=== PATIENT | female | born 1990 | race Caucasian/White ===

== ENCOUNTER 2016-05-29 21:28 | Outpatient (CLI) | payer OTHER ==
[2016-05-29 22:08] LABS: APPEARANCE,URINE CLOUDY; BILIRUBIN,URINE NEGATIVE (NEGATIVE); GLUCOSE, URINE NEGATIVE (NEGATIVE); KETONES,URINE 80 mg/dL (NEGATIVE); LEUKOCYTE ESTERASE,URINE MODERATE (NEGATIVE); NITRITE,URINE NEGATIVE (NEGATIVE); PROTEIN,URINE NEGATIVE (NEGATIVE); URINE SPECIFIC GRAVITY 1.013
[2016-05-29 22:23] LABS: URINE BARBITURATES SCREEN NEGATIVE; URINE METHADONE SCREEN NEGATIVE; URINE PHENCYCLIDINE SCREEN NEGATIVE
--- NOTE | 2016-05-30 04:46 | L&D Flow Sheet ---
LD Flowsheet Datetime Report Generated by CPN: 05/30/2016 04:45 Datetime: 05/29/2016 23:10 Additional Nursing Comments: Monitors removed, pt OOB and ambulating off of unit accompanied by spouse and child. (Rachelle Ring, RN) Datetime: 05/29/2016 23:07 Teaching Comments: Patient and patient's spouse verbalized understanding of discharge intstructions. Will return to hospital/report to provider for decreased movement, contractions that increase in duration/frequency/intensity, suspected SROM, vaginal bleeding. Patient denies any questions at this time, pain of 1 out of 5, in stable, ambulatory condition. Care relinquished at this time. (Rachelle Ring, RN) Datetime: 05/29/2016 23:06 NBP Sys/Latisha/Mean (mmHg): 106 (QS system process) : 76 (QS system process) : 88 (QS system process) Pulse: 115 (QS system process) Respirations: 18 (Rachelle Ring, RN) Temperature (F): 97.6 (Rachelle Ring, RN) Temperature (C): 36.4 (QS system process) Temperature Route: Oral (Rachelle Ring, RN) LaborFlag: Antepartum (QS system process) Datetime: 05/29/2016 22:57 Communication Communication: Call/Page Placed to Provider; Call/Page Returned by Provider (Rachelle Hawkins RN) Communication Comments: Call placed to Dr. Brown. Report to include pain of 1 out of 5, urinalysis results, relevant patient history, toco data, SVE and SVE recheck, vitals. Orders received to send patient home and have her follow up at her next scheduled visit. (Rachelle Ring, RN) Datetime: 05/29/2016 22:48 Uterine Activity Monitor Mode: External; Palpation (Rachelle Ring, RN) Frequency (min): x1 (Rachelle Ring, RN) Quality: Mild (Rachelle Ring, RN) Duration (sec): 60 (Rachelle Ring, RN) Resting Tone (Palpate): Relaxed (Rachelle Ring, RN) Assessment A Monitor Mode: External US (Rachelle Ring, RN) FHR Baseline Rate : 135 (Rachelle Ring, RN) Variability: Moderate 6-25 bpm (Rachelle Ring, RN) Accelerations: 15X15 (Rachelle Ring, RN) Decelerations: None (Rachelle Ring, RN) Pain Pain Scale: 1 (Rachelle Ring, RN) Pain Presence: Intermittent (Rachelle Ring, RN) Pain Type: Contraction (Rachelle Ring, RN) Pain Location: Abdomen (Rachelle Ring, RN) I/O Interventions: Up to BR (Rachelle Ring, RN) LaborFlag: Antepartum (QS system process) Datetime: 05/29/2016 22:47 Vaginal Exam Dilatation (cm): 1.5 (Rachelle Ring, RN) Effacement (%): 50 (Rachelle Ring, RN) Station: -2 (Rachelle Ring, RN) Exam by: B. Ring RN (Rachelle Ring, RN) Vaginal Bleeding: None (Rachelle Ring, RN) Cervix, Consistency: Soft (Rachelle Ring, RN) Cervix, Position: Posterior (Rachelle Ring, RN) Datetime: 05/29/2016 22:30 Uterine Activity Monitor Mode: External; Palpation (Rachelle Ring, RN) Frequency (min): Irregular (Rachelle Ring, RN) Quality: Mild (Rachelle Ring, RN) Duration (sec): 40-80 (Rachelle Ring, RN) Resting Tone (Palpate): Relaxed (Rachelle Ring, RN) Assessment A Monitor Mode: External US (Rachelle Ring, RN) FHR Baseline Rate : 135 (Rachelle Ring, RN) Variability: Moderate 6-25 bpm (Rachelle Ring, RN) Accelerations: 15X15 (Rachelle Ring, RN) Decelerations: None (Rachelle Ring, RN) Datetime: 05/29/2016 22:26 NBP Sys/Latisha/Mean (mmHg): 111 (QS system process) : 69 (QS system process) : 84 (QS system process) Pulse: 96 (QS system process) LaborFlag: Antepartum (QS system process) Datetime: 05/29/2016 22:18 Patient Care Comments: Pillow and blanket provided. (Rachelle Ring, RN) Datetime: 05/29/2016 22:04 I/O Interventions: Popsicle (Rachelle Ring, RN) Datetime: 05/29/2016 22:00 Uterine Activity Monitor Mode: External; Palpation (Rachelle Ring, RN) Frequency (min): 8 (Rachelle Ring, RN) Quality: Mild (Rachelle Ring, RN) Duration (sec): 40-70 (Rachelle Ring, RN) Resting Tone (Palpate): Relaxed (Rachelle Ring, RN) Assessment A Monitor Mode: External US (Rachelle Ring, RN) FHR Baseline Rate : 145 (Rachelle Ring, RN) Variability: Moderate 6-25 bpm (Rachelle Ring, RN) Accelerations: None (Rachelle Ring, RN) Decelerations: None (Rachelle Ring, RN) Datetime: 05/29/2016 21:56 NBP Sys/Latisha/Mean (mmHg): 115 (QS system process) : 62 (QS system process) : 81 (QS system process) Pulse: 111 (QS system process) Respirations: 22 (Rachelle Ring, RN) Temperature (F): 98.0 (Rachelle Ring, RN) Temperature (C): 36.7 (QS system process) Temperature Route: Oral (Rachelle Ring, RN) Pain Pain Scale: 1 (Rachelle Ring, RN) Pain Presence: Intermittent (Rachelle Ring, RN) Pain Type: Cramping; Contraction (Rachelle Ring, RN) Pain Location: Abdomen (Rachelle Ring, RN) Pain Goal: 1 (Rachelle Ring, RN) Pain Relief Measures: Comfort Measures (Rachelle Ring, RN) Pain Coping: Talking Through Contractions; Breathing Through Contractions (Rachelle Ring, RN) Membrane Status: Intact (Rachelle Ring, RN) Vaginal Bleeding: None (Rachelle Ring, RN) Maternal Assessment Level of Consciousness: Fully Conscious (Rachelle Ring, RN) DTR's/Clonus: DTRs 2+; No Clonus (Rachelle Ring, RN) Headache: Denies (Rachelle Ring, RN) Breath Sounds, Left: Clear and Equal (Rachelle Ring, RN) Breath Sounds, Right: Clear and Equal (Rachelle Ring, RN) Nausea/Vomiting: Denies (Rachelle Ring, RN) RUQ Epigastric Pain: Denies (Rachelle Ring, RN) Teaching Instructional Method: Verbal; Patient Instructed; Family/Support Person Instructed; Verbalized Understanding (Rachelle Ring, RN) Plan of Care: Plan of Care Discussed (Rachelle Ring, RN) Unit Routine: [place] to Room; Call [facility]; Bed; Visiting Policy; Handwashing; Flu/Illness Precautions; Monitoring; Safety/Fall Risk Prevention; Bathroom Privileges (Rachelle Ring, RN) LaborFlag: Antepartum (QS system process) Datetime: 05/29/2016 21:55 Patient Care Patient Position/Activity: Left Tilt (Rachelle Ring, RN) Datetime: 05/29/2016 21:49 Vaginal Exam Dilatation (cm): 1.5 (Rachelle Ring, RN) Effacement (%): 50 (Rachelle Ring, RN) Station: -2 (Rachelle Ring, RN) Exam by: B. Ring RN (Rachelle Ring, RN) Cervix, Consistency: Soft (Rachelle Ring, RN) Cervix, Position: Posterior (Rachelle Ring, RN) Datetime: 05/29/2016 21:48 I/O Interventions: Ice Chips Given; Clear Liquids Given (Rachelle Ring, RN) Datetime: 05/29/2016 21:44 Vital Signs Stage of : Antepartum (Rachelle Ring, RN)
--- NOTE | 2016-05-30 04:47 | L&D Current Admission ---
Current Admit Datetime Report Generated by CPN: 05/30/2016 04:45 ADMISSION INFORMATION Chief Complaint: Contractions (05/29/2016 21:56:Rachelle Ring, RN)
--- NOTE | 2016-05-30 04:47 | Antepartum Discharge Summary ---
Antepartum DC Datetime Report Generated by CPN: 05/30/2016 04:45 DIET/ACTIVITY/RESTRICTIONS Diet: Regular (05/29/2016 22:59:Rachelle Ring, RN) Activity: Normal Activity (05/29/2016 22:59:Rachelle Ring, RN) TEACHING/INSTRUCTIONS/REFERRALS Instructions Understood: Patient Verbalized Understanding; Support Person Verbalized Understanding (05/29/2016 22:59:Rachelle Ring, RN) Referrals: None (05/29/2016 22:59:Rachelle Ring, RN) Educational Materials- Other: - Kick Counts - Dehydration and (05/29/2016 22:59:Rachelle Hawkins RN) DISCHARGE INFORMATION Discharged AMA: No (05/29/2016 22:59:Rachelle Hawkins RN) Discharged To: Home (05/29/2016 22:59:Rachelle Hawkins RN) Discharge Provider Name: Dr. Brown (05/29/2016 22:59:Rachelle Hawkins RN) Accompanied By: Spouse, child (05/29/2016 22:59:Rachelle Hawkins RN) Discharge Method: Ambulatory (05/29/2016 22:59:Rachelle Hawkins RN) Condition: Stable (05/29/2016 22:59:Rachelle Hawkins RN) FOLLOW UP INFORMATION Follow Up With: [facility] (05/29/2016 22:59:Rachelle Hawkins RN) Follow Up On: As Scheduled (05/29/2016 22:59:Rachelle Hawkins RN) Follow Up Phone Number: [facility] - (05/29/2016 22:59:Rachelle Hawkins RN) Comments: Signs and symptoms to report to provider to include vaginal bleeding, decreased movement, contractions that increase in frequency/duration/intensity, suspected SROM. Will follow up with [facility] at next scheduled appointment. (05/29/2016 22:59:Rachelle Hawkins RN)
--- NOTE | 2016-05-30 04:47 | L&D Admission Assessment ---
LD ADM ASMT Datetime Report Generated by CPN: 05/30/2016 04:45 PATIENT ASSESSMENT Assessment Type: Triage (05/29/2016 21:56:Rachelle Ring, RN) WEIGHT Weight (lb): 178 (05/29/2016 21:55:QS system process) Weight (lb): 178 (05/29/2016 21:42:QS system process) Weight (kg): 80.9 (05/29/2016 21:55:QS system process) Weight (kg): 80.9 (05/29/2016 21:42:QS system process) BMI: 32.6 (05/29/2016 21:55:QS system process) PAIN Pain Scale: 1 (05/29/2016 22:48:Rachelle Ring, RN) Pain Scale: 1 (05/29/2016 21:56:Rachelle Ring, RN) Pain Presence: Intermittent (05/29/2016 22:48:Rachelle Ring, RN) Pain Presence: Intermittent (05/29/2016 21:56:Rachelle Ring, RN) Pain Type: Contraction (05/29/2016 22:48:Rachelle Ring, RN) Pain Type: Cramping; Contraction (05/29/2016 21:56:Rachelle Ring, RN) Pain Location: Abdomen (05/29/2016 22:48:Rachelle Ring, RN) Pain Location: Abdomen (05/29/2016 21:56:Rachelle Ring, RN) Pain Goal: 1 (05/29/2016 21:56:Rachelle Ring, RN) Pain Related to Contraction: Yes (05/29/2016 21:56:Rachelle Ring, RN) CONTRACTIONS Frequency (min): x1 (05/29/2016 22:48:Rachelle Ring, RN) Frequency (min): Irregular (05/29/2016 22:30:Rachelle Ring, RN) Frequency (min): 8 (05/29/2016 22:00:Rachelle Ring, RN) Duration (sec): 60 (05/29/2016 22:48:Rachelle Ring, RN) Duration (sec): 40-80 (05/29/2016 22:30:Rachelle Ring, RN) Duration (sec): 40-70 (05/29/2016 22:00:Rachelle Ring, RN) Quality: Mild (05/29/2016 22:48:Rachelle Ring, RN) Quality: Mild (05/29/2016 22:30:Rachelle Ring, RN) Quality: Mild (05/29/2016 22:00:Rachelle Ring, RN) Resting Tone Rosa: Relaxed (05/29/2016 22:48:Rachelle Ring, RN) Resting Tone Rosa: Relaxed (05/29/2016 22:30:Rachelle Ring, RN) Resting Tone Rosa: Relaxed (05/29/2016 22:00:Rachelle Ring, RN) VAGINAL EXAM Dilatation (cm): 1.5 (05/29/2016 22:47:Rachelle Ring, RN) Dilatation (cm): 1.5 (05/29/2016 21:49:Rachelle Ring, RN) Effacement (%): 50 (05/29/2016 22:47:Rachelle Ring, RN) Effacement (%): 50 (05/29/2016 21:49:Rachelle Ring, RN) Station: -2 (05/29/2016 22:47:Rachelle Ring, RN) Station: -2 (05/29/2016 21:49:Rachelle Ring, RN) Membranes Status: Intact (05/29/2016 21:56:Rachelle Ring, RN) NEURO Level of Consciousness: Fully Conscious (05/29/2016 21:56:Rachelle Ring, RN) DTR's/Clonus: DTRs 2+; No Clonus (05/29/2016 21:56:Rachelle Ring, RN) Headache: Denies (05/29/2016 21:56:Rachelle Ring, RN) Dizziness: No (05/29/2016 21:56:Rachelle Ring, RN) Blurred Vision: No (05/29/2016 21:56:Rachelle Ring, RN) Extremity Numbness/Tingling : None (05/29/2016 21:56:Rachelle Ring, RN) Extremity Movement: Full Range of Motion (05/29/2016 21:56:Rachelle Ring, RN) CARDIOVASCULAR Heart Rhythm: Regular (05/29/2016 21:56:Rachelle Ring, RN) Nailbeds: [place] (05/29/2016 21:56:Rachelle Hawkins RN) Capillary Refill: Less than 3 Seconds (05/29/2016 21:56:Rachelle Hawkins RN) Lower Extremities Edema: None (05/29/2016 21:56:Rachelle Hawkins RN) Upper Extremities Edema: None (05/29/2016 21:56:Rachelle Hawkins RN) Facial Edema: None (05/29/2016 21:56:Rachelle Hawkins RN) Vinay's Sign Left Leg: Negative (05/29/2016 21:56:Rachelle Hawkins RN) Vinay's Sign Right Leg: Negative (05/29/2016 21:56:Rachelle Hawkins RN) DVT RISK ASSESSMENT DVT Risk Age: Age less than 41 years (05/29/2016 21:56:Rachelle Hawkins RN) DVT Risk BMI: BMI<31 (05/29/2016 21:56:Rachelle Hawkins RN) DVT Risk Surgery: None Applicable (05/29/2016:56:Rachelle Hawkins RN) DVT Risk Other: Women Only- or (<1 month) (05/29/2016 21:56:Rachelle Hawkins RN) DVT Risk Total: 1 (05/29/2016 21:56:QS system process) DVT Risk Text: Low Risk (<10%) No specific measures, early ambulation (05/29/2016:56:QS system process) RESPIRATORY Respiratory Effort: Unlabored; Regular Rhythm; Equal Expansion (05/29/2016 21:56:Rachelle Ring, RN) Breath Sounds, Left: Clear and Equal (05/29/2016 21:56:Rachelle Ring, RN) Breath Sounds, Right: Clear and Equal (05/29/2016 21:56:Rachelle Ring, RN) Cough Productivity: None (05/29/2016 21:56:Rachelle Ring, RN) GASTROINTESTINAL Nausea/Vomiting: Denies (05/29/2016 21:56:Rachelle Ring, RN) Bowel Sounds: Normoactive; All Quadrants (05/29/2016 21:56:Rachelle Ring, RN) RUQ Epigastric Pain: Denies (05/29/2016 21:56:Rachelle Ring, RN) Bowel Patterns: Loose Stool (05/29/2016 21:56:Rachelle Ring, RN) Hemorrhoids: Present (05/29/2016 21:56:Rachelle Ring, RN) Diet Type: Regular diet (05/29/2016 21:56:Rachelle Ring, RN) Last Meal: 05/29/2016 13:00 (05/29/2016 21:56:Rachelle Ring, RN) GENITOURINARY Bladder: Nondistended (05/29/2016 21:56:Rachelle Ring, RN) Urination Burning: No (05/29/2016 21:56:Rachelle Ring, RN) CVA Tenderness: No (05/29/2016 21:56:Rachelle Ring, RN) Vaginal Bleeding: None (05/29/2016 21:56:Rachelle Ring, RN) Vaginal Discharge Amount: Moderate (05/29/2016 21:56:Rachelle Ring, RN) Vaginal Discharge Color: Per pt vaginal discharge has been "moderate amount of mucous/possible mucous plug" (05/29/2016 21:56:Rachelle Ring, RN) Vaginal Discharge Odor: Non-Odorous (05/29/2016 21:56:Rachelle Ring, RN) Vaginal Discharge Character: Thin (05/29/2016 21:56:Rachelle Ring, RN) INTEGUMENTARY Skin Color: Normal for Race (05/29/2016 21:56:Rachelle Ring, RN) Skin Temperature: Warm (05/29/2016 21:56:Rachelle Ring, RN) Skin Moisture: Dry (05/29/2016 21:56:Rachelle Ring, RN) Body Piercings/Tattoos: ears, nose (05/29/2016 21:56:Rachelle Ring, RN) SIRI SKIN ASSESSMENT Siri Scale Sensory Perception: No Impairment- Responds to verbal commands. Has no sensory deficit which would limit ability to feel or voice pain or discomfort (05/29/2016 21:56:Rachelle Hawkins RN) Siri Scale Moisture: Rarely Moist- Skin is usually dry. Linen only requires changing at routine intervals (05/29/2016 21:56:Rachelle Hawkins RN) Siri Scale Activity: Walks Frequently- Walks outside the room at least twice a day and inside room at least every 2 hours during the day. (05/29/2016 21:56:Rachelle Hawkins RN) Siri Scale Mobility: No Limitations- Makes major and frequent changes in position without assistance (05/29/2016 21:56:Rachelle Hawkins RN) Siri Scale Nutrition: Excellent- Eats most of every meal. Never refuses a meal. Usually eats a total of 4 or more servings of meat and dairy products. Occasionally eats between meals. Does not require supplementation (05/29/2016 21:56:Rachelle Hawkins RN) Siri Scale Friction and Shear: No Apparent Problem- Moves in bed and in chair independently and has sufficient muscle strength to lift up completely during move. Maintains good position in bed or chair at all times (05/29/2016 21:56:Rachelle Hawkins RN) Siri Scale Total: 23 (05/29/2016 21:56:QS system process) Siri Scale Risk: No Risk of Pressure Ulcer Noted at this Time (05/29/2016 21:56:QS system process) SUPPORT Family Support: Significant Other supportive, at bedside frequently; Child(kate) visited (05/29/2016 21:56:Rachelle Ring, RN) Emotional State: Calm/Relaxed (05/29/2016 21:56:Rachelle Ring, RN) SAFETY Call [facility] Within Reach: Yes (05/29/2016 21:56:Rachelle Ring, RN) Side Rails Up: Yes (05/29/2016 21:56:Rachelle Ring, RN) Bed Wheels Locked: Yes (05/29/2016 21:56:Rachelle Ring, RN) Arm Bands Present: Yes (05/29/2016 21:56:Rachelle Ring, RN) Isolation: [place] (05/29/2016 21:56:Rachelle Ring, RN) FALL SCREEN Fall Risk History of Falling: (0) No (05/29/2016 21:56:Rachelle Hawkins RN) Fall Risk Secondary Diagnosis: (0) No (05/29/2016 21:56:Rachelle Hawkins RN) Fall Risk Ambulatory Aid: (0) None/Bedrest/Wheelchair/Nurse Assist (05/29/2016 21:56:Rachelle Hawkins RN) Fall Risk IV Therapy: (0) No (05/29/2016 21:56:Rachelle Hawkins RN) Fall Risk Gait: (0) Normal/Bedrest/Immobile (05/29/2016 21:56:Rachelle Hawkins RN) Fall Risk Mental Status: (0) Oriented to Own Ability (05/29/2016 21:56:Rachelle Hawkins RN) Fall Risk Score: 0 (05/29/2016 21:56:QS system process) Fall Risk Score Definition: No Risk: No action required (05/29/2016:56:QS system process) RECENT TRAVEL/INFECTIOUS DISEASE Recent Exp Communicable Disease: No (05/29/2016 21:56:Rachelle Hawkins RN) Cough or Fever: No (05/29/2016 21:56:Rachelle Hawkins RN) Foreign Travel Past 10 Days: No (05/29/2016 21:56:Rachelle Hawkins RN) Open Wounds or Sores: No (05/29/2016 21:56:Rachelle Hawkins RN) Prior Antibiotic Resistance Tx: No (05/29/2016 21:56:Rachelle Hawkins RN) Cultures Obtained: Not Applicable (05/29/2016 21:56:Rachelle Hawkins RN) Isolation Initiated: No (05/29/2016 21:56:Rachelle Ring, RN) Pt/Family Education: Handwashing Hygiene (05/29/2016 21:56:Rachelle Ring, RN) BABY A FHR Baseline Rate (bpm) Baby A: 135 (05/29/2016 22:48:Rachelle Ring, RN) FHR Baseline Rate (bpm) Baby A: 135 (05/29/2016 22:30:Rachelle Ring, RN) FHR Baseline Rate (bpm) Baby A: 145 (05/29/2016 22:00:Rachelle Ring, RN) Variability Baby A: Moderate 6-25 bpm (05/29/2016 22:48:Rachelle Ring, RN) Variability Baby A: Moderate 6-25 bpm (05/29/2016 22:30:Rachelle Ring, RN) Variability Baby A: Moderate 6-25 bpm (05/29/2016 22:00:Rachelle Ring, RN) Accelerations Baby A: 15X15 (05/29/2016 22:48:Rachelle Ring, RN) Accelerations Baby A: 15X15 (05/29/2016 22:30:Rachelle Ring, RN) Accelerations Baby A: None (05/29/2016 22:00:Rachelle Ring, RN) Decelerations Baby A: None (05/29/2016 22:48:Rachelle Ring, RN) Decelerations Baby A: None (05/29/2016 22:30:Rachelle Ring, RN) Decelerations Baby A: None (05/29/2016 22:00:Rachelle Ring, RN)
--- NOTE | 2016-05-30 04:47 | L&D General Admission ---
General Admit Datetime Report Generated by CPN: 05/30/2016 04:45 INFORMATION Patient Age: 25 (05/13/2016 09:17:QS system process) EDC: 06/12/2016 00:00 (05/29/2016 21:25:Rachelle Hawkins, RN) : 4 (05/29/2016 21:25:Rachelle Ring, RN) Para: 3 (05/29/2016 22:59:Rachelle Ring RN) Para: 3 (05/29/2016 21:25:Rachelle Ring, RN) Term: 3 (05/29/2016 21:25:Rachelle Ring, RN) : 0 (05/29/2016 21:25:Rachelle Ring, RN) Spontaneous Abortions: 0 (05/29/2016 21:25:Rachelle Ring RN) Induced Abortions: 0 (05/29/2016 21:25:Rachelle Ring, RN) Livin (05/29/2016 21:25:Rachelle Ring, RN) Cesareans: 0 (05/29/2016 21:25:Rachelle Ring RN) VBACs: 0 (05/29/2016 21:25:Rachelle Ring, RN) Ectopic: 0 (05/29/2016 21:25:Rachelle Ring, RN) Multiple Births: 0 (05/29/2016 21:25:Rachelle Ring, RN) Baby, Number in Womb: 1 (05/29/2016 22:59:Rachelle Ring, RN) Baby, Number in Womb: 1 (05/29/2016 21:25:Rachelle Ring, RN) CARE Primary Crime Scene Evidence Technician: [facility] (05/29/2016 21:25:Rachelle Ring, RN) Adequate Care: Yes (05/29/2016 21:25:Rachelle Ring, RN) Height (in): 62 (05/29/2016 21:55:QS system process) Height (in): 62 (05/29/2016 21:42:QS system process) ALLERGIES Medication Allergy: No (05/29/2016 21:25:Rachelle Ring, RN) Medication Allergies: No Known Allergies (05/29/2016) (05/29/2016 21:42:QS system process) Medication Allergies: No Known Allergies (10/02/2014) (05/13/2016 09:17:QS system process) Latex Allergy: No Latex Allergies (05/29/2016 21:25:Rachelle Hawkins RN) Food Allergies: none (05/29/2016 21:25:Rachelle Ring RN) Environmental Allergies: none (05/29/2016 21:25:Rachelle Ring, RN) COMMUNICATION Primary Language: Qatari (05/29/2016 21:25:Rachelle Hawkins RN) Medical Tx Preferred Language: Qatari (05/29/2016 21:25:Rachelle Ring RN) Communication Barrier(s): None (05/29/2016 21:25:Rachelle Ring, RN) DEMOGRAPHICS Address: [facility] [place] [address] (05/13/2016 09:17:QS system process) Zipcode: [address] (05/13/2016 09:17:QS system process) Home (05/13/2016 09:17:QS system process) N: [id number] (05/13/2016 09:17:QS system process) Next of Kin Name: ANDREW REDD (05/13/2016 09:17:QS system process) Next of Kin (05/13/2016 09:17:QS system process) Next of Kin Relationship: SPO (05/13/2016 09:17:QS system process) Date of : 1990 (05/13/2016 09:17:QS system process) Marital Status: (05/13/2016 09:17:QS system process) Sex: Female (05/13/2016 09:17:QS system process) Race: (05/13/2016 09:17:QS system process) Ethnicity: Non- or (05/13/2016 09:17:QS system process) Anabaptist: Taoist (05/13/2016 09:17:QS system process) DRUG AND ALCOHOL USE Alcohol: No (05/29/2016 21:25:Rachelle Hawkins RN) Cigarettes: Never Smoker. [id number] (05/29/2016 21:25:Rachelle Hawkins RN) Marijuana: No (05/29/2016 21:25:Rachelle Hawkins RN) Cocaine: No (05/29/2016 21:25:Rachelle Hawkins RN) Other Illicit Drugs: No (05/29/2016 21:25:Rachelle Hawkins RN) VACCINE HISTORY Influenza Vaccine: No (05/29/2016 21:25:Rachelle Hawkins RN) Pneumococcal Vaccine: No (05/29/2016 21:25:Rachelle Hawkins RN) Tetanus Vaccine: Yes (05/29/2016 21:25:Rachelle Hawkins RN) Tdap Vaccine: Yes (05/29/2016 21:25:Rachelle Hawkins RN) Tdap Date: 2014 (05/29/2016 21:25:Rachelle Hawkins RN) Hepatitis B Vaccine: Yes (05/29/2016 21:25:Rachelle Hawkins RN) Preventive Medicine Specialist: Page Miller (05/29/2016 21:25:Rachelle Hawkins RN) Feeding Preference: Breast (05/29/2016 21:25:Rachelle Hawkins RN) Benefit of Breast Feed Discussed: Yes (05/29/2016 21:25:Rachelle Hawkins RN) Circumcision: No (05/29/2016 21:25:Rachelle Hawkins RN) Classes Attended: No (05/29/2016 21:25:Rachelle Hawkins RN) Tubal Ligation: Yes (05/29/2016 21:25:Rachelle Hawkins RN) Tubal Authorization Signed: No (05/29/2016 21:25:Rachelle Hawkins RN) Consent: N/A (05/29/2016 21:25:Rachelle Hawkins RN) Consent Signed: N/A (05/29/2016 21:25:Rachelle Hawkins RN) Pain Management Plans: Natural (05/29/2016 21:25:Rachelle Hawkins RN) Plans for Labor and Delivery: Other, Specify (05/29/2016 21:25:Rachelle Hawkins RN) Other Labor and Delivery Plans: Delayed cord clamping (05/29/2016 21:25:Rachelle Hawkins RN) Support Person: Andrew (05/29/2016 21:25:Rachelle Hawkins RN) Support Person Relationship: (05/29/2016 21:25:Rachelle Hawkins RN) Cultural/Spritual Practice: No (05/29/2016 21:25:Rachelle Hawkins RN) Spir/Cult Dietary Needs: No (05/29/2016 21:25:Rachelle Hawkins RN) LIVING SITUATION/DISCHARGE PLAN Living Arrangements: House (05/29/2016 21:25:Rachelle Hawkins RN) Adequate Access to:: Electric; Heat; Refrigeration; Plumbing/Running water; Phone; Transportation (05/29/2016 21:25:Rachelle Hawkins RN) WIC Program: Yes (05/29/2016 21:25:Rachelle Hawkins RN) Discharge Shot Examiner Person: Andrew (05/29/2016 21:25:Rachelle Hawkins RN) Person to Help after Discharge: Andrew (05/29/2016 21:25:Rachelle Hawkins RN) Currently Using Commun Resources: No (05/29/2016 21:25:Rachelle Hawkins RN) Outside Agency/Spar Cap Beveler: N/A (05/29/2016 21:25:Rachelle Hawkins RN) Car Seat for Discharge: Yes (05/29/2016 21:25:Rachelle Hawkins RN) Adoption Requested: No (05/29/2016 21:25:Rachelle Ring, RN) Pt Contact w/ Post : N/A (05/29/2016 21:25:Rachelle Ring, RN) LABS Blood Type: O Positive (05/29/2016 21:25:Rachelle Ring RN) Antibody Screen: Negative (05/29/2016 21:25:Rachelle Ring RN) Group Beta Strep: Negative (05/29/2016 21:25:Rachelle Ring RN) Gonorrhea: Negative (05/29/2016 21:25:Rachelel Ring, RN) Chlamydia: Negative (05/29/2016 21:25:Rachelle Ring RN) RPR/VDRL: Nonreactive (05/29/2016 21:25:Rachelle Ring RN) Hepatitis B: Negative (05/29/2016 21:25:Rachelle Ring, RN) Rubella: Immune (05/29/2016 21:25:Rachelle Ring, RN) OB/PREVIOUS HISTORY Previous Procedures: Ultrasound (05/29/2016 21:25:Rachelle Hawkins RN) Current Procedures: Ultrasound (05/29/2016 21:25:Rachelle Hawkins RN) History of Previous : No (05/29/2016 21:25:Rachelle Hawkins RN) History of Gestational Diabetes: No (05/29/2016 21:25:Rachelle Hawkins RN) History of PIH: No (05/29/2016 21:25:Rachelle Hawkins RN) History of Incompetent Cervix: No (05/29/2016 21:25:Rachelle Hawkins RN) History of Placenta Previa/Abrup: No (05/29/2016 21:25:Rachelle Hawkins RN) History of Macrosomia: No (05/29/2016 21:25:Rachelle Hawkins RN) History of IUGR: No (05/29/2016 21:25:Rachelle Hawkins RN) History of Hemorrhage: No (05/29/2016 21:25:Rachelle Hawkins RN) History of Loss/Stillborn: No (05/29/2016 21:25:Rachelle Hawkins RN) History of : No (05/29/2016 21:25:Rachelle Hawkins RN) History of D (Rh) Sensitization: No (05/29/2016 21:25:Rachelle Hawkins RN) History Recurrent Loss/Stillborn: No (05/29/2016 21:25:Rachelle Hawkins RN) History Depression/PP Depression: No (05/29/2016 21:25:Rachelle Hawkins RN) History of Uterine Anomaly/NARENDRA: No (05/29/2016 21:25:Rachelle Hawkins RN) History of Infertility: No (05/29/2016 21:25:Rachelle Hawkins RN) History of ART Treatment: No (05/29/2016 21:25:Rachelle Hawkins RN) History of NARENDRA: No (05/29/2016 21:25:Rachelle Hawkins RN) Comments Obstetrical History: G1: 06/2008 girl @ 39.5 weeks, 8# 2oz G2: 04/2010 boy (induction for no medical reason per pt) @ 39 weeks, 7# 7oz G3: 09/2014 boy @ 39.5, 7# 7 oz G4: current (05/29/2016 21:25:Rachelle Hawkins RN) MEDICAL HISTORY Med Hx Diabetes: No (05/29/2016 21:25:Rachelle Hawkins RN) Med Hx Hypertension: No (05/29/2016 21:25:Rachelle Hawkins RN) Med Hx Heart Disease: No (05/29/2016 21:25:Rachelle Hawkins RN) Med Hx Autoimmune Disorder: No (05/29/2016 21:25:Rachelle Hawkins RN) Med Hx Kidney Disease/UTI: No (05/29/2016 21:25:Rachelle Hawkins RN) Med Hx Neurologic/Epilepsy: No (05/29/2016 21:25:Rachelle Hawkins RN) Med Hx Psychiatric Disorders: No (05/29/2016 21:25:Rachelle Hawkins RN) Med Hx Hepatitis/Liver Disease: No (05/29/2016 21:25:Rachelle Hawkins RN) Med Hx Varicosities/Phlebitis: No (05/29/2016 21:25:Rachelle Hawkins RN) Med Hx Thyroid Dysfunction: No (05/29/2016 21:25:Rachelle Hawkins RN) Med Hx Trauma/Violence: No (05/29/2016 21:25:Rachelle Hawkins RN) Med Hx Blood Transfusion: No (05/29/2016 21:25:Rachelle Hawkins RN) Med Hx Pulmonary (Asthma,TB): No (05/29/2016 21:25:Rachelle Hawkins RN) Med Hx Breast: No (05/29/2016 21:25:Rachelle Hawkins RN) Med Hx ACCOUNT DEVELOPMENT SPECIALIST Surgery: No (05/29/2016 21:25:Rachelle Hawkins RN) Med Hx Hospitalization/Surgery: Yes (05/29/2016 21:25:Rachelle Hawkins RN) Med Hx Anesthetic Complications: No (05/29/2016 21:25:Rachelle Hawkins RN) Med Hx Abnormal Pap Smear: No (05/29/2016 21:25:Rachelle Hawkins RN) Other Medical Diseases: No (05/29/2016 21:25:Rachelle Hawkins RN) Med Hx Significant Family Hx: No (05/29/2016 21:25:Rachelle Hawkins RN) Details of Med/Surg Hx: hospitalized for of babies (05/29/2016 21:25:Rachelle Hawkins RN) INFECTIOUS HISTORY Inf Hx Gonorrhea: No (05/29/2016 21:25:Rachelle Hawkins RN) Inf Hx Chlamydia: No (05/29/2016 21:25:Rachelle Hawkins RN) Inf Hx Syphilis: No (05/29/2016 21:25:Rachelle Hawkins RN) Inf Hx HIV/AIDS: No (05/29/2016 21:25:Rachelle Hawkins RN) Inf Hx Human Papilloma Virus: No (05/29/2016 21:25:Rachelle Hawkins RN) Inf Hx Pt/Partner Genital Herpes: No (05/29/2016 21:25:Rachelle Hawkins RN) Inf Hx Tuberculosis/Exposure: No (05/29/2016 21:25:Rachelle Hawkins RN) Inf Hx Hepatitis B,C: No (05/29/2016 21:25:Rachelle Hawkins RN) Inf Hx Rash or Viral Illness: No (05/29/2016 21:25:Rachelle Hawkins RN) GENETIC HISTORY Gen Hx Age >=35 at JAIME: No (05/29/2016 21:25:Rachelle Hawkins RN) Gen Hx Thalassemia: No (05/29/2016 21:25:Rachelle Hawkins RN) Gen Hx Congenital Heart Defect: No (05/29/2016 21:25:Rachelle Hawkins RN) Gen Hx Neural Tube Defect: No (05/29/2016 21:25:Rachelle Hawkins RN) Gen Hx Down's Syndrome: No (05/29/2016 21:25:Rachelle Hawkins RN) Gen Hx Juan Antonio-Sachs: No (05/29/2016 21:25:Rachelle Hawkins RN) Gen Hx Joycelyn: No (05/29/2016 21:25:Rachelle Hawkins RN) Gen Hx Familial Dysautonomia: No (05/29/2016 21:25:Rachelle Hawkins RN) Gen Hx Sickle Cell Disease/Trait: No (05/29/2016 21:25:Rachelle Hakwins RN) Gen Hx Hemophilia/Blood Disorder: No (05/29/2016 21:25:Rachelle Hawkins RN) Gen Hx Muscular Dystrophy: No (05/29/2016 21:25:Rachelle Hawkins RN) Gen Hx Cystic Fibrosis: No (05/29/2016 21:25:Rachelle Hawkins RN) Gen Hx Huntingtons Chorea: No (05/29/2016 21:25:Rachelle Hawkins RN) Gen Hx Mental Retardation/Autism: No (05/29/2016 21:25:Rachelle Hawkins RN) Gen Hx Tested for Fragile X: No (05/29/2016 21:25:Rachelle Hawkins RN) Gen Hx Other Inher/Chromosomal: No (05/29/2016 21:25:Rachelle Hawkins RN) Gen Hx Maternal Metabolic DO: No (05/29/2016 21:25:Rachelle Hawkins RN) Gen Hx Pt Father or FOB Defect: No (05/29/2016 21:25:Rachelle Hawkins RN) Gen Hx Other Genetic History: No (05/29/2016 21:25:Rachelle Hawkins RN) Gen Hx Drugs/Meds since LMP: Yes (05/29/2016 21:25:Rachelle Hawkins RN) Gen Hx Medications: PNV (05/29/2016 21:25:Rachelle Hawkins RN)
--- NOTE | 2016-05-30 04:47 | L&D Discharge Summary ---
OB Discharge Summary Datetime Report Generated by CPN: 05/30/2016 04:45 DISCHARGE DIAGNOSIS Diagnosis/Symptoms: False Labor Gestation: 38.0 Number of Babies in Womb: 1 Parity: 3 DIET/ACTIVITY/RESTRICTIONS Diet: Regular Activity: Normal Activity TEACHING/INSTRUCTIONS/REFERRALS Instructions Understood: Patient Verbalized Understanding; Support Person Verbalized Understanding Referrals: None Educational Materials- Other: - Kick Counts - Dehydration and DISCHARGE INFORMATION Discharged AMA: No Discharged To: Home Discharge Provider Name: Dr. Brown Accompanied By: Spouse, child Discharge Method: Ambulatory Condition: Stable FOLLOW UP INFORMATION Follow Up With: [facility] Follow Up On: As Scheduled Follow Up Phone Number: [facility] - Comments: Signs and symptoms to report to provider to include vaginal bleeding, decreased movement, contractions that increase in frequency/duration/intensity, suspected SROM. Will follow up with [facility] at next scheduled appointment.
== END 2016-05-29 23:10 | disposition home or self-care (01) ==
LOC: LC 21:28
PROVIDERS: ATTEND Obstetrics & Gynecology
PROC: 4A1HXCZ Monitoring of Products of Conception, Cardiac Rate, External Approach (ICD-10-PCS; principal; 2016-05-29)
DX: Z34.93 Encounter for supervision of normal pregnancy, unspecified, third trimester (principal); Z3A.38 38 weeks gestation of pregnancy
CPT/HCPCS: 59025; 80307; 81005

== ENCOUNTER 2016-06-12 21:22 | Outpatient (CLI) | payer OTHER ==
[2016-06-12 21:55] LABS: APPEARANCE,URINE CLEAR; BILIRUBIN,URINE NEGATIVE (NEGATIVE); GLUCOSE, URINE NEGATIVE (NEGATIVE); KETONES,URINE NEGATIVE (NEGATIVE); LEUKOCYTE ESTERASE,URINE SMALL (NEGATIVE); NITRITE,URINE NEGATIVE (NEGATIVE); PROTEIN,URINE NEGATIVE (NEGATIVE); URINE SPECIFIC GRAVITY 1.005; UROBILINOGEN,URINE NEGATIVE mg/dL (<2.0)
--- NOTE | 2016-06-12 22:01 | L&D Flow Sheet ---
LD Flowsheet Datetime Report Generated by CPN: 06/12/2016 22:00 Datetime: 06/12/2016 21:40 Uterine Activity Monitor Interventions for UA: [place] Adjusted (Tanja Marlatt, RN) Datetime: 06/12/2016 21:38 Vaginal Exam Dilatation (cm): 3.0 (Tanja Cain RN) Effacement (%): 70 (Tanja Cain RN) Station: -1 (Tanja Cain RN) Exam by: Enoc Cain RN (Tanja Cain RN) Vaginal Bleeding: None (Tanja Cain RN) Cervix, Consistency: Moderate (Tanja Cain RN) Cervix, Position: Midposition (Tanja Cain RN) Datetime: 06/12/2016 21:37 Vital Signs NBP Sys/Latisha/Mean (mmHg): 124 (QS system process) : 89 (QS system process) : 103 (QS system process) Pulse: 116 (QS system process) Communication LaborFlag: Antepartum (QS system process) Datetime: 06/12/2016 21:35 Frequency (min): 5-10 minutes (Tanja Marlatt, RN) Pain Pain Scale: 3 (Tanja Cain, RN) Pain Presence: Intermittent (Tanja Cain, RN) Pain Type: Cramping; Contraction (Tanja Cain, RN) Pain Location: Abdomen (Tanja Simmonstt, RN) Pain Goal: 1 (Tanja Cain, RN) Pain Coping: Talking Through Contractions; Breathing Through Contractions (Tanja Cain, RN) Membrane Status: Intact (Tanja Cain, RN) Vaginal Bleeding: None (Tanja Cain, RN) Maternal Assessment Level of Consciousness: Fully Conscious (Tanja Simmonstt, RN) DTR's/Clonus: DTRs 2+; No Clonus (Tanja Ordonezlatt, RN) Headache: Denies (Tanja Ordonezlatt, RN) Breath Sounds, Left: Clear and Equal (Tanja Ordonezlatt, RN) Breath Sounds, Right: Clear and Equal (Tanja Ordonezlatt, RN) Nausea/Vomiting: Denies (Tanja Ordonezlatt, RN) RUQ Epigastric Pain: Denies (Tanja Ordonezlatt, RN) Teaching Instructional Method: Demo; Verbal; Patient Instructed; Family/Support Person Instructed; Verbalized Understanding (SHADIA Tovar Plan of Care: Plan of Care Discussed; Labor (Tanja Cain RN) Unit Routine: [place] to Room; Call Gordon; Bed; Monitoring (Tanja Cain RN) Labor/Induction: Labor Stages (Tanja Cain RN) Communication LaborFlag: Antepartum (QS system process)
[2016-06-12 22:10] LABS: URINE BARBITURATES SCREEN NEGATIVE; URINE METHADONE SCREEN NEGATIVE; URINE OPIATES LOW NEGATIVE; URINE PHENCYCLIDINE SCREEN NEGATIVE
[2016-06-12] MEDS ORDERED: HYDROXYZINE PAMOATE 50 MG CAPSULE ONE (22:43)
--- NOTE | 2016-06-12 22:56 | Non Stress Test Report ---
Non Stress Test Datetime Report Generated by CPN: 06/12/2016 22:56 DEMOGRAPHIC EGA NST: 40.0 INDICATION Indication for Study: Other Indication for Study (NST) Other: LC MONITORING Monitor Explained: Monitor Explained; Test Explained; Patient Verbalized Understanding Time on Monitor: 06/12/2016 21:36 Time off Monitor: 06/12/2016 22:40 NST Duration: 64 NST INTERVENTIONS NST Interventions: PO Hydration Physician Notified NST: Dr. An BABY A Movement : Present Contraction Frequency : 3-11 FHR Baseline : 135 Accelerations : 15X15 Decelerations : None Variability : Moderate 6-25bpm NST Review: Meets Criteria for Reactive NST NST Review and Verified By : Enoc Mendoza, RN NST Results: Reactive NST REPORT Report Trigger: Send Report
== END 2016-06-12 22:53 | disposition home or self-care (01) ==
LOC: LC 21:22
PROVIDERS: ATTEND Obstetrics & Gynecology
PROC: 4A1HXCZ Monitoring of Products of Conception, Cardiac Rate, External Approach (ICD-10-PCS; principal; 2016-06-12)
DX: O47.1 False labor at or after 37 completed weeks of gestation (principal); Z3A.40 40 weeks gestation of pregnancy
CPT/HCPCS: 59025; 80307; 81005

== ENCOUNTER 2016-06-12 23:47 | Inpatient (IN) | payer OTHER ==
[2016-06-13] MEDS ORDERED: MISOPROSTOL 0.2 MG TABLET ONE (00:05)
[2016-06-13] MEDS ORDERED: LIDOCAINE 1% INJ-PF (10 MG/ML) 30 ML SDV ONE (00:05)
[2016-06-13] MEDS ORDERED: OXYTOCIN/NORMAL SALINE 20 UNIT/1,000 ML RTUINJ ONE (00:05)
[2016-06-13] MEDS ORDERED: BENZOCAINE/MENTHOL AEROSOL SPRAY 56 ML TOP PRN (01:01)
[2016-06-13] MEDS ORDERED: PSEUDOEPHEDRINE HCL 30 MG TABLET PO PRN (01:01)
[2016-06-13] MEDS ORDERED: PROMETHAZINE HCL INJ 25 MG/1 ML VIAL IV PRN (01:01)
[2016-06-13] MEDS ORDERED: MEASLES,MUMPS&RUBELLA VACC/PF 0.5 ML VIAL SUBCUT PRN (01:01)
[2016-06-13] MEDS ORDERED: ACETAMINOPHEN 650 MG SUPP.RECT PR PRN (01:01)
[2016-06-13] MEDS ORDERED: OXYTOCIN/NORMAL SALINE 20 UNIT/1,000 ML RTUINJ IV PRN (01:01)
[2016-06-13] MEDS ORDERED: MAGNESIUM HYDROXIDE SUSP 30 ML UDCUP PO PRN (01:01)
[2016-06-13] MEDS ORDERED: GLYCERIN/WITCH HAZEL LEAF 1 EACH MED..PAD TP PRN (01:01)
[2016-06-13] MEDS ORDERED: DIPH/PERTUSS(ACELL)/TETANUS VAC/PF 0.5 ML SYR (>=10YO) IM PRN (01:01)
[2016-06-13] MEDS ORDERED: DIBUCAINE 1% OINTMENT 28 GM TP PRN (01:01)
[2016-06-13] MEDS ORDERED: ZOLPIDEM TARTRATE 5 MG TABLET PO PRN (01:01)
[2016-06-13] MEDS ORDERED: DIPHENHYDRAMINE HCL 25 MG CAPSULE PO PRN (01:01)
[2016-06-13] MEDS ORDERED: ACETAMINOPHEN WITH CODEINE #3 TABLET PO PRN (01:01)
[2016-06-13] MEDS ORDERED: PROMETHAZINE HCL 25 MG TABLET PO PRN (01:01)
[2016-06-13] MEDS ORDERED: PROMETHAZINE HCL 25 MG SUPP.RECT PR PRN (01:01)
[2016-06-13] MEDS ORDERED: NA PHOS,M-B/NA PHOS,DI-BA (ADULT) 133 ML ENEMA PR PRN (01:01)
[2016-06-13] MEDS ORDERED: IBUPROFEN 800 MG TABLET ONE (01:06)
[2016-06-13] MEDS ORDERED: ACETAMINOPHEN WITH CODEINE #3 TABLET ONE (01:06)
[2016-06-13 01:42] LABS: HEMATOCRIT 32.6 % (36.0-47.0); HEMOGLOBIN 10.5 g/dL (12.0-15.5); HGB HCT DIFFERENCE -1.1; MEAN CORPUSCULAR HEMOGLOBIN 23.4 pg (27.0-33.4); MEAN CORPUSCULAR HGB CONC 32.2 g/dL (32.0-36.0); MEAN CORPUSCULAR VOLUME 73 fl (80-97); RED BLOOD COUNT 4.49 10^6/uL (3.72-5.28); RED CELL DISTRIBUTION WIDTH 15.5 % (11.5-14.0); WHITE BLOOD COUNT 20.9 10^3/uL (4.0-10.5)
--- NOTE | 2016-06-13 01:46 | Delivery Summary ---
Del Sum A-C Datetime Report Generated by CPN: 06/13/2016 01:45 ADMISSION DATA Chief Complaint: Uterine Contractions Indication for Induction: Not Applicable Admission Impression: Term, Intrauterine ; Active Labor; Intact Membranes DELIVERY PERSONNEL Delivery Doctor:: Joselito An, DO Labor and Delivery Nurse:: Mar Mendoza, relay man Nurse:: Radha Faria, RN MATERNAL INFORMATION Delivery Anesthesia: None Medications After Delivery: Pitocin Drip 20 Units/1000ml NSS Estimated Blood Loss (ml): 200 Maternal Complications: Precipitous Labor (<3hrs) Provider Comments: of viable male in RADAMES position Loose Nuchgal x1 easily reduced Placenta delievered and intact with 3v cord Fundus firm LABOR SUMMARY EDC: 06/12/2016 00:00 No. Babies in Womb: 1 Attempted: No Labor Anesthesia: None LABOR INFORMATION Reason for Induction: Not Applicable Onset of Labor: 06/12/2016 23:57 Complete Dilatation: 06/13/2016 00:19 Oxytocin: N/A Group B Beta Strep: Negative Antibiotics # of Doses: 0 Antibiotics Time of Last Dose: n/a Steroids Given: None Reason Steroids Not Administered: Not Applicable MEMBRANES Membranes Rupture Method: Spontaneous Rupture of Membranes: 06/13/2016 00:19 Length of Rupture (hr): 0.10 Amniotic Fluid Color: Clear Amniotic Fluid Amount: Small Amniotic Fluid Odor: Normal STAGES OF LABOR Stage 1 hr: 0 Stage 1 min: 22 Stage 2 hr: 0 Stage 2 min: 6 Stage 3 hr: 0 Stage 3 min: 4 Total Time in Labor hr: 0 Total Time in Labor min: 32 VAGINAL DELIVERY Episiotomy: None Laceration Extension: N/A Laceration Type: None Laceration Repair: Not Applicable Sponge Count Correct: N/A Sharps Count Correct: N/A CSECTION DELIVERY Primary Indication: N/A Secondary Indication: N/A CSection Incidence: N/A Labor: N/A Elective: N/A CSection Incision: N/A BABY A INFORMATION Infant Delivery Date/Time: 06/13/2016 00:25 Method of Delivery: Vaginal Born in Route : No : N/A Forceps: N/A Vacuum Extraction: N/A Shoulder Dystocia : No PRESENTATION/POSITION BABY A Presentation: Cephalic Cephalic Presentation: Vertex Vertex Position: Right Occipital Anterior Breech Presentation: N/A PLACENTA INFORMATION BABY A Placenta Delivery Time : 06/13/2016 00:29 Placenta Method of Delivery: Spontaneous Placenta Status: Delivered SCORES BABY A Heart Rate 1 min: >100 bpm Resp Effort 1 min: Good Cry Reflex Irritability 1 min: Cough or Sneeze or Pulls Away Muscle Tone 1 min: Active Motion Color 1 min: Blue/Pale SCORE 1 MIN: 8 Heart Rate 5 min: >100 bpm Resp Effort 5 min: Good Cry Reflex Irritability 5 min: Cough or Sneeze or Pulls Away Muscle Tone 5 min: Active Motion Color 5 min: Body Pringle, Extremities Blue SCORE 5 MIN: 9 INFANT INFORMATION BABY A Gestational Age at Delivery: 40.1 Gestational Status: Full Term- 39- 40.6 Weeks Outcome : Liveborn Condition : Stable Infant Sex: Male IDENTIFICATION BABY A Infant Verification Date/Time: 06/13/2016 00:32 ID Band Number: [id number] Mother's Name Verified: Yes RN Verifying Infant: Dipesh MontanezEunice ONTIVEROS Additional Verifying Personnel: Ring, B. RN WEIGHT/LENGTH BABY A Infant Birthweight (gm): 3580 Infant Weight (lb): 7 Infant Weight (oz): 14 Length (in): 21.00 Infant Length (cm): 53.34 CORD INFORMATION BABY A No. Cord Vessels: 3 Nuchal Cord : Around Neck x1, Loose Cord Blood Taken: Yes-For Eval (Mom's Blood Type - or O+) Suction: Mouth; Nose ASSESSMENT BABY A Infant Complications: None Physical Findings at Delivery: Within Normal Limits Respirations: Appears Normal Skin to Skin: Yes Skin to Skin Time (min): 30 Crusher Plant Operator/ALS Called : No Transferred To: Nursery BABY B INFORMATION : N/A SIGNATURES Signature: with User ID: [email or web address]
[2016-06-13 02:00] LABS: BASOPHILS % (MANUAL) 1 % (0-2); EOSINOPHILS % (MANUAL) 0 % (0-6); LYMPHOCYTES % (MANUAL) 9 % (13-45); TOTAL CELLS COUNTED 100
[2016-06-13 02:01] LABS: ANISOCYTOSIS SLIGHT; HYPOCHROMASIA SLIGHT; MICROCYTOSIS SLIGHT; POLYCHROMASIA SLIGHT
--- NOTE | 2016-06-13 02:38 | Admission Physical ---
Datetime Report Generated by CPN: 06/13/2016 02:37 CURRENT ADMISSION Chief Complaint: Uterine Contractions Indication for Induction: Not Applicable Admit Plan: Admit to Unit; Initiate Labor Protocol ALLERGIES Medication Allergies: No Medication Allergies: No Known Allergies (06/12/2016) Latex: No Latex Allergies Food Allergies: none Environmental Allergies: none OBSTETRICAL HISTORY EDC: 06/12/2016 00:00 : 4 Para: 3 Term: 3 : 0 SAB: 0 IAB: 0 Ectopic: 0 Livin Cesareans: 0 VBACs: 0 Multiple Births: 0 Gestational Diabetes: No Rh Sensitization: No Incompetent Cervix: No NARENDRA: No Infertility: No ART Treatment: No Uterine Anomaly: No IUGR: No Hx Previous C/S: No Macrosomia: No Hx Loss/Stillborn: No PIH: No Hx : No Placenta Previa/Abruption: No Depression/PP Depression: No PTL/PROM: No Post Hemorrhage: No Current Procedures: Ultrasound Obstetrical History Comments: G1: 06/2008 girl @ 39.5 weeks, 8# 2oz G2: 04/2010 boy (induction for no medical reason per pt) @ 39 weeks, 7# 7oz G3: 09/2014 boy @ 39.5, 7# 7 oz G4: current SEE RECORDS Alcohol: No Marijuana : No Cocaine: No Other Illicit Drugs: No Cigarettes: Never Smoker. [id number] MEDICAL HISTORY Diabetes: No Blood Transfusion: No Pulmonary Disease (Asthma, TB): No Breast Disease: No Hypertension: No Office Spec Surgery: No Heart Disease: No Hosp/Surgery: Yes Autoimmune Disorder: No Anesthetic Complications: No Kidney Disease: No Abnormal Pap Smear: No Neuro/Epilepsy: No Psychiatric Disorders: No Other Medical Diseases: No Hepatitis/Liver Disease: No Significant Family History: No Varicosities/Phlebitis: No Trauma/Violence : No Thyroid Dysfunction: No Medical History Comments: hospitalized for of babies INFECTIOUS HISTORY Gonorrhea: No Genital Herpes: No Chlamydia: No Tuberculosis: No Syphilis: No Hepatitis: No HIV/AIDS Exposure: No Rash or Viral Illness: No HPV: No PHYSICAL EXAM General: Normal HEENT: Normal Neurologic: Normal Thyroid: Deferred Heart: Normal Lungs: Normal Breast: Deferred Back: Normal Abdomen: Normal Genitourinary Exam: Normal Extremities: Normal DTRs: Normal Pelvic Type: Adequate Vital Signs: Reviewed; Within Normal Limits VAGINAL EXAM Dilatation: 6 Effacement: 80 Station: -1 MEMBRANES Membranes: Intact FETUS A EGA: 40.1 Monitoring: External US FHR- Baseline: 140 Variability: Moderate 6-25bpm Accelerations: 15X15 Decelerations: None FHR Category: Category I Presentation: Vertex PLANS FOR LABOR AND DELIVERY Labor and Delivery: Other, Specify Pain Management: Natural Feeding Preference: Breast Benefit of Breast Feed Discussed: Yes Circumcision: No INFORMED CONSENT Signature: with User ID: [email or web address]
[2016-06-13] MEDS: IBUPROFEN 800 MG TABLET PO SCH ×3 (05:18→21:23)
[2016-06-13] MEDS: ACETAMINOPHEN WITH CODEINE #3 TABLET PO PRN ×3 (06:10→17:15)
--- NOTE | 2016-06-13 07:00 | L&D Flow Sheet ---
LD Flowsheet Datetime Report Generated by CPN: 06/13/2016 07:00 Datetime: 06/13/2016 02:39 Vital Signs Stage of : Recovery (Jami Field, RN) Datetime: 06/13/2016 02:00 Vital Signs Stage of : Recovery (Jami House, RN) Temperature (F): 98.0 (Jami House, RN) Temperature (C): 36.7 (QS system process) Temperature Route: Oral (Jami House, RN) Datetime: 06/13/2016 01:58 NBP Sys/Latisha/Mean (mmHg): 115 (QS system process) : 66 (QS system process) : 86 (QS system process) Pulse: 89 (QS system process) Datetime: 06/13/2016 01:45 Vital Signs Stage of : Recovery (Jamiyana House, RN) Pain Pain Scale: 2 (Jami House, RN) Pain Presence: Constant (Jami House, RN) Pain Type: Ache (Jami Field, RN) Pain Location: Perineum (Jami Field, RN) Datetime: 06/13/2016 01:43 NBP Sys/Latisha/Mean (mmHg): 116 (QS system process) : 67 (QS system process) : 86 (QS system process) Pulse: 96 (QS system process) Datetime: 06/13/2016 01:30 [facility] 2 [facility] Pain Presence: Constant [facility] Pain Type: Ache (Jami Field, RN) Pain Location: Perineum (Jami Field, RN) Datetime: 06/13/2016 01:28 NBP Sys/Latisha/Mean (mmHg): 114 (QS system process) : 80 (QS system process) : 93 (QS system process) Pulse: 92 (QS system process) Datetime: 06/13/2016 01:15 Pain Pain Scale: 2 (Jami [facility], RN) Pain Presence: Constant [facility] Pain Type: Ache (Jami Field, RN) Pain Location: Perineum (Jami Field, RN) Datetime: 06/13/2016 01:13 NBP Sys/Latisha/Mean (mmHg): 110 (QS system process) : 81 (QS system process) : 90 (QS system process) Pulse: 87 (QS system process) Datetime: 06/13/2016 01:00 Pain Pain Scale: 2 (Mar Reji, RN) Pain Presence: Constant (Mar Reji, RN) Pain Type: Ache (Mar Reji, RN) Pain Location: Perineum (Mar Reji, RN) Datetime: 06/13/2016 00:58 NBP Sys/Latisha/Mean (mmHg): 110 (QS system process) : 59 (QS system process) : 82 (QS system process) Pulse: 77 (QS system process) Datetime: 06/13/2016 00:45 Pain Pain Scale: 2 (Mar Reji, RN) Pain Presence: Constant (Mar Reji, RN) Pain Type: Ache (Mar Reji, RN) Pain Location: Perineum (Mar Reji, RN) Datetime: 06/13/2016 00:43 NBP Sys/Latisha/Mean (mmHg): 108 (QS system process) : 55 (QS system process) : 76 (QS system process) Pulse: 83 (QS system process) Datetime: 06/13/2016 00:30 Vital Signs Stage of : Recovery (Jami Field, RN) Pain Pain Scale: 2 (Mar Reji, RN) Pain Presence: Constant (Mar Reji, RN) Pain Type: Ache (Mar Reji, RN) Pain Location: Perineum (Mar Reji, RN) Datetime: 06/13/2016 00:28 NBP Sys/Latisha/Mean (mmHg): 142 (QS system process) : 62 (QS system process) : 89 (QS system process) Pulse: 97 (QS system process) LaborFlag: Antepartum (QS system process) Datetime: 06/13/2016 00:25 Comments: delivery of viable baby boy. infant was placed on maternal abd where dried and stimulated. Cord was then clamped and cut. Infant was placed on maternal skin to skin. (Mignon Montanez, RN) Datetime: 06/13/2016 00:24 Uterine Activity Monitor Mode: External; Palpation (Mignon Lisseth, RN) Frequency (min): 2 (Mignon Soyman, RN) Quality: Moderate to Strong (Mignon Chalman, RN) Duration (sec): 40-60 (Mignon Soyman, RN) Pattern: Normal: <= 5 Contractions in 10 Minutes (Mignon Soyman, RN) Resting Tone (Palpate): Relaxed (Mignon Chalman, RN) Assessment A Monitor Mode: External US (Mignon Lisseth, RN) FHR Baseline Rate : 135 (Mignon Chalman, RN) FHR Baseline Changes: No Baseline Change (Mignon Chalman, RN) Variability: Moderate 6-25 bpm (Mignon Chalman, RN) Accelerations: 15X15 (Mignon Chalman, RN) Decelerations: None (Mignon Chalman, RN) Datetime: 06/13/2016 00:23 Stage 2 Stage 2 Comments: Dr. An at bedside and pt. set up for delivery (Mar Reji, RN) Datetime: 06/13/2016 00:19 Vaginal Exam Dilatation (cm): 10.0 (Mignon Montanez RN) Effacement (%): 100 (Mignon Montanez RN) Station: 3 (Mignon Montanez RN) Exam by: Enoc Mendoza RN (Mignon Montanez RN) Membrane Status: Ruptured (Mignon Montanez RN) Membranes Rupture Method: Spontaneous (Mignon Montanez RN) Amniotic Fluid Color: Clear (Mignon Montanez RN) Amniotic Fluid Amount: Small (Mignon Montanez RN) Amniotic Fluid Odor: Normal (Mignon Montanez RN) Datetime: 06/13/2016:18 Stage 2 Stage 2 Comments: RN to remain at bedside adjsuting ultrasound and continuously monitoring FHT (Mar Reji, RN) Datetime: 06/13/2016 00:15 Uterine Activity Monitor Mode: External; Palpation (Mignon Montanez RN) Quality: Moderate to Strong (Mignon Montanez, RAMA) Pattern: Normal: <= 5 Contractions in 10 Minutes (Mignon Montanez, RN) Resting Tone (Palpate): Relaxed (Mignon Montanez, RAMA) Contraction Comments: utd contraction pattern due to pt movement (Mignon Montanez, RAMA) Assessment A Monitor Mode: External US (Mignon Chalman, RN) FHR Baseline Rate : 135 (Mignon Chalman, RN) FHR Baseline Changes: No Baseline Change (Mignon Chalman, RN) Variability: Moderate 6-25 bpm (Mignon Chalman, RN) Accelerations: 15X15 (Mignon Chalman, RN) Decelerations: None (Mignon Chalman, RN) Communication Communication: Call/Page Placed to Provider (Mignon Chalman, RN) Communication Comments: Call placed to Dr. An with report that pt states feeling need to push. Provider en route to unit. (Mignon Chalman, RN) Datetime: 06/13/2016 00:12 Patient Care Comments: Pt. reports feeling of having to push. Pt. helped back in bed to perform SVE (Mar Reji, RN) Datetime: 06/13/2016 00:09 Patient Care Comments: pt; standing at bedside (Mar Reji, RN) Patient Care Comments: consents signed (Mar Reji, RN) Datetime: 06/13/2016 00:05 Pain Pain Scale: 5 (Mar Reji, RN) Pain Presence: Intermittent (Mar Reji, RN) Pain Type: Contraction (Mar Reji, RN) Pain Location: Abdomen (Mar Reji, RN) Pain Coping: Breathing Through Contractions (Mar Reji, RN) Membrane Status: Intact (Mar Reji, RN) Vaginal Bleeding: None (Mar Reji, RN) Maternal Assessment Level of Consciousness: Fully Conscious (Mar Reji, RN) DTR's/Clonus: DTRs 2+; No Clonus (Mar Reji, RN) Headache: Denies (Mar Reji, RN) Breath Sounds, Left: Clear and Equal (Mar Reji, RN) Breath Sounds, Right: Clear and Equal (Mar Reji, RN) Nausea/Vomiting: Present (Mar Reji, RN) RUQ Epigastric Pain: Denies (Mar Reji, RN) LaborFlag: Antepartum (QS system process) Datetime: 06/13/2016 00:03 Communication Comments: Dr. An called and notified of pt. arrival., SVE, hx, and request for a saline lock and delayed cord clamping. New orders received to admit pt. at this time and place saline lock (Mar Reji, RN) Datetime: 06/13/2016 00:02 NBP Sys/Latisha/Mean (mmHg): 121 (QS system process) : 68 (QS system process) : 89 (QS system process) Pulse: 96 (QS system process) LaborFlag: Antepartum (QS system process) Datetime: 06/12/2016 23:57 Vaginal Exam Dilatation (cm): 6.0 (Mar Reji, RN) Effacement (%): 80 (Mar Mendoza RN) Station: -1 (Mar Mendoza RN) Exam by: Enoc Mendoza RN (Mar Mendoza RN) Vaginal Bleeding: None (Mar Mendoza RN) Cervix, Consistency: Soft (Mar Mendoza RN) Cervix, Position: Midposition (Mar Mendoza RN) Patient Care Patient Position/Activity: Left Lateral (Mar Mendoza RN) I/O Interventions: Ice Chips Given; Clear Liquids Given (Mar Mendoza RN) Teaching Instructional Method: Verbal; Patient Instructed; Family/Support Person Instructed (Mar Mendoza RN) Plan of Care: Plan of Care Discussed; Vaginal Delivery (Mar Mendoza RN) Labor/Induction: Labor Stages (Mar Mendoza RN) Datetime: 06/12/2016 22:45 Medications Medication Comments: 50mg PO Vistaril (Tanja Marlatt, RN) Datetime: 06/12/2016 22:40 Comments: monitors discontinued, patient being discharged (Tanja Marlatt, RN) Datetime: 06/12/2016 22:38 Vaginal Exam Dilatation (cm): 3.0 (Tanja Cain, RN) Effacement (%): 70 (Tanja Cain, RN) Station: -1 (Tanja Cain, RAMA) Exam by: Enoc Cain (Tanja Cain, RN) Datetime: 06/12/2016 22:37 NBP Sys/Latisha/Mean (mmHg): 120 (QS system process) : 86 (QS system process) : 99 (QS system process) Pulse: 94 (QS system process) LaborFlag: Antepartum (QS system process) Datetime: 06/12/2016 22:30 Uterine Activity Monitor Mode: External (Tanja Marlatt, RN) Frequency (min): 3-4.5 (Tanja Marlatt, RN) Quality: Mild/Moderate (Tanja Marlatt, RN) Duration (sec): 70-90 (Tanja Marlatt, RN) Resting Tone (Palpate): Relaxed (Tanja Marlatt, RN) Assessment A Monitor Mode: External US (Tanja Marlatt, RN) FHR Baseline Rate : 140 (Tanja Marlatt, RN) Variability: Moderate 6-25 bpm (Tanja Marlatt, RN) Accelerations: 15X15 (Tanja Marlatt, RN) Decelerations: None (Tanja Marlatt, RN) Datetime: 06/12/2016 22:18 Communication Communication: Provider Orders Received; Call/Page Placed to Provider (Tanja Cain RN) Provider Notified (Name): Dr. An (Tanja Cain RN) Notification Reason: Status Update; Status; Labor Status; Membrane Status; Uterine Activity (Tanja Cain RN) Communication Comments: Notified provider of FHTs, CTXs, and SVE. Received order to recheck cervix 1 hr after first exam, if unchanged offer patient vistaril and discharge patient home . If cervix changes call back for further orders. (Tanja Cain RN) Datetime: 06/12/2016 22:07 NBP Sys/Latisha/Mean (mmHg): 125 (QS system process) : 76 (QS system process) : 94 (QS system process) Pulse: 100 (QS system process) LaborFlag: Antepartum (QS system process) Datetime: 06/12/2016 22:00 Uterine Activity Monitor Mode: External; Palpation (Tanja Cain RN) Frequency (min): 5-11 (Tanja Cain RN) Quality: Mild/Moderate (Tanja Cain RN) Duration (sec): 60-100 (Tanja Cain RN) Resting Tone (Palpate): Relaxed (Tanja Cain RN) Assessment A Monitor Mode: External US (Tanja Marlatt, RN) FHR Baseline Rate : 135 (Tanja Marlatt, RN) Variability: Moderate 6-25 bpm (Tanja Marlatt, RN) Accelerations: 15X15 (Tanja Marlatt, RN) Decelerations: None (Tanja Marlatt, RN) Datetime: 06/12/2016 21:40 Monitor Interventions for UA: [place] Adjusted (Tanja Marlatt, RN) Datetime: 06/12/2016 21:38 Vaginal Exam Dilatation (cm): 3.0 (Tanja Cain RN) Effacement (%): 70 (Tanja Cain RN) Station: -1 (Tanja Cain RN) Exam by: Enoc Cain RN (Tanja Cain RN) Vaginal Bleeding: None (Tanja Cain RN) Cervix, Consistency: Moderate (Tanja Cain RN) Cervix, Position: Midposition (Tanja Cain RN) Datetime: 06/12/2016 21:37 NBP Sys/Latisha/Mean (mmHg): 124 (QS system process) : 89 (QS system process) : 103 (QS system process) Pulse: 116 (QS system process) LaborFlag: Antepartum (QS system process) Datetime: 06/12/2016 21:35 Frequency (min): 5-10 minutes (Tanja Cain RN) Pain Pain Scale: 3 (Tanja Cain, RN) Pain Presence: Intermittent (Tanja Cain, RN) Pain Type: Cramping; Contraction (Tanja Cain, RN) Pain Location: Abdomen (Tanja Cain, RN) Pain Goal: 1 (Tanja Cain, RN) Pain Coping: Talking Through Contractions; Breathing Through Contractions (Tanja Ant, RN) Membrane Status: Intact (Tanja Cain, RN) Vaginal Bleeding: None (Tanja Cain, RN) Maternal Assessment Level of Consciousness: Fully Conscious (Tanja Marlahailey, RN) DTR's/Clonus: DTRs 2+; No Clonus (Tanja Cain, RN) Headache: Denies (Tanja Cain, RN) Breath Sounds, Left: Clear and Equal (Tanja Cian RN) Breath Sounds, Right: Clear and Equal (Tanja Cain RN) Nausea/Vomiting: Denies (Tanja Cain RN) RUQ Epigastric Pain: Denies (Tanja Cain RN) Teaching Instructional Method: Demo; Verbal; Patient Instructed; Family/Support Person Instructed; Verbalized Understanding (Tanja Cain RN) Plan of Care: Plan of Care Discussed; Labor (Tanja Cain RN) Unit Routine: [place] to Room; Call Gordon; Bed; Monitoring (Tanja Cain RN) Labor/Induction: Labor Stages (Tanja Cain RN) LaborFlag: Antepartum (QS system process)
[2016-06-13] MEDS: PRENATAL VITAMIN W-O CA NO5/FE FUMARATE/FA CAPSULE PO SCH (09:11)
[2016-06-13] MEDS: FERROUS SULFATE 325 MG TABLET PO SCH ×2 (09:12→17:12)
[2016-06-13] MEDS: SENNOSIDES/DOCUSATE 8.6-50 MG 1 EACH TABLET PO SCH (09:12)
[2016-06-13] MEDS: DOCUSATE SODIUM 100 MG CAPSULE PO SCH ×2 (09:12→17:12)
[2016-06-13] MEDS: FAMOTIDINE 20 MG TABLET PO SCH ×2 (09:12→21:23)
--- NOTE | 2016-06-13 09:53 | PDOC PROGRESS REPORT ---
Subjective-OB Subjective: Post Delivery Day: 26 year old. Denies any needs at this time Physical Exam (OB) Vital Signs: Temp Pulse Resp BP Pulse Ox 98.2 F 67 16 114/62 99 06/13/16 07:30 06/13/16 07:30 06/13/16 07:30 06/13/16 07:30 06/13/16 07:30 Intake & Output 06/12/16 06/13/16 06/14/16 06:59 06:59 06:59 Intake Total 240 Balance 240 Weight 80.385 kg - Lochia Lochia Amount: Small 10-25 ml Lochia Color: Rubra/Red - Abdomen Description: Tender, Soft, Round Hernia Present: No Bowel Sounds: Normoactive Flatus Presence: Absent Stool: No Fundal Description: Firm, Midline Fundal Height: u/u - u/2 Objective-Diagnostic Laboratory: 06/13/16 01:20 06/13/16 06/13/16 01:20 01:20 WBC 20.9 H RBC 4.49 Hgb 10.5 L Hct 32.6 L MCV 73 L MCH 23.4 L MCHC 32.2 RDW 15.5 H Plt Count 308 Seg Neutrophils % Not Reportable Lymphocytes % Not Reportable Monocytes % Not Reportable Eosinophils % Not Reportable Basophils % Not Reportable Absolute Neutrophils Not Reportable Absolute Lymphocytes Not Reportable Absolute Monocytes Not Reportable Absolute Eosinophils Not Reportable Absolute Basophils Not Reportable Blood Type O POSITIVE Antibody Screen NEGATIVE
--- NOTE | 2016-06-13 18:01 | L&D General Admission ---
General Admit Datetime Report Generated by CPN: 06/13/2016 18:00 INFORMATION Patient Age: 25 (05/13/2016 09:17:QS system process) EDC: 06/12/2016 00:00 (05/29/2016 21:25:Rachelle Hawkins RN) : 4 (05/29/2016 21:25:Rachelle Hawkins RN) Para: 3 (06/12/2016 22:55:Tanja Cain RN) Term: 3 (05/29/2016 21:25:Rachelle Hawkins RN) : 0 (05/29/2016 21:25:Rachelle Hawkins RN) Spontaneous Abortions: 0 (05/29/2016 21:25:Rachelle Hawkins RN) Induced Abortions: 0 (05/29/2016 21:25:Rachelle Hawkins RN) Livin (05/29/2016 21:25:Rachelle Hawkins RN) Cesareans: 0 (05/29/2016 21:25:Rachelle Hawkins RN) VBACs: 0 (05/29/2016 21:25:Rachelle Hawkins RN) Ectopic: 0 (05/29/2016 21:25:Rachelle Hawkins RN) Multiple Births: 0 (05/29/2016 21:25:Rachelle Hawkins RN) Baby, Number in Womb: 1 (06/12/2016 22:55:Tanja Cain RN) CARE Primary Driver'S License Examiner: [facility] (05/29/2016 21:25:Rachelle Hawkins RN) Adequate Care: Yes (05/29/2016 21:25:Rachelle Hawkins RN) Height (in): 64 (06/13/2016 09:55:QS system process) ALLERGIES Medication Allergy: No (05/29/2016 21:25:Rachelle Hawkins RN) Medication Allergies: No Known Allergies (06/12/2016) (06/12/2016 21:33:QS system process) Latex Allergy: No Latex Allergies (05/29/2016 21:25:Rachelle Hawkins RN) Food Allergies: none (05/29/2016 21:25:Rachelle Hawkins RN) Environmental Allergies: none (05/29/2016 21:25:Rachelle Ring, RN) COMMUNICATION Primary Language: Niuean (05/29/2016 21:25:Rachelle Hawkins RN) Medical Tx Preferred Language: Niuean (05/29/2016 21:25:Rachelle Hawkins RN) Communication Barrier(s): None (05/29/2016 21:25:Rachelle Hawkins RN) DEMOGRAPHICS Address: [address] [place] [id number] (05/13/2016 09:17:QS system process) Zipcode: [address] (05/13/2016 09:17:QS system process) Home (05/13/2016 09:17:QS system process) SSN: [id number] (05/13/2016 09:17:QS system process) Next of Kin Name: ANDREW REDD (05/13/2016 09:17:QS system process) Next of Kin (05/13/2016 09:17:QS system process) Next of Kin Relationship: SPO (05/13/2016 09:17:QS system process) Date of : 1990 (05/13/2016 09:17:QS system process) Marital Status: (05/13/2016 09:17:QS system process) Sex: Female (05/13/2016 09:17:QS system process) Race: (05/13/2016 09:17:QS system process) Ethnicity: Non- or (05/13/2016 09:17:QS system process) Anabaptist: Druze (05/13/2016 09:17:QS system process) DRUG AND ALCOHOL USE Alcohol: No (05/29/2016 21:25:Rachelle Ring, RN) Cigarettes: Never Smoker. [id number] (05/29/2016 21:25:Rachelle Ring, RN) Marijuana: No (05/29/2016 21:25:Rachelle Ring, RN) Cocaine: No (05/29/2016 21:25:Rachelle Ring, RN) Other Illicit Drugs: No (05/29/2016 21:25:Rachelle Ring, RN) VACCINE HISTORY Influenza Vaccine: No (05/29/2016 21:25:Rachelle Ring, RN) Pneumococcal Vaccine: No (05/29/2016 21:25:Rachelle Hawkins RN) Tetanus Vaccine: Yes (05/29/2016 21:25:Rachelle Hawkins RN) Tdap Vaccine: Yes (05/29/2016 21:25:Rachelle Hawkins RN) Tdap Date: 2014 (05/29/2016 21:25:Rachelle Hawkins RN) Hepatitis B Vaccine: Yes (05/29/2016 21:25:Rachelle Hawkins RN) Cinder Block Mason: Page Miller (05/29/2016 21:25:Rachelle Hawkins RN) Feeding Preference: Breast (05/29/2016 21:25:Rachelle Hawkins RN) Benefit of Breast Feed Discussed: Yes (05/29/2016 21:25:Rachelle Hawkins RN) Circumcision: No (05/29/2016 21:25:Rachelle Hawkins RN) Classes Attended: No (05/29/2016 21:25:Rachelle Hawkins RN) Tubal Ligation: Yes (05/29/2016 21:25:Rachelle Hawkins RN) Tubal Authorization Signed: No (05/29/2016 21:25:Rachelle Hawkins RN) Consent: N/A (05/29/2016 21:25:Rachelle Hawkins RN) Consent Signed: N/A (05/29/2016 21:25:Rachelle Hawkins RN) Pain Management Plans: Natural (05/29/2016 21:25:Rachelle Hawkins RN) Plans for Labor and Delivery: Other, Specify (05/29/2016 21:25:Rachelle Hawkins RN) Other Labor and Delivery Plans: Delayed cord clamping (05/29/2016 21:25:Rachelle Hawkins RN) Support Person: Andrew (05/29/2016 21:25:Rachelle Hawkins RN) Support Person Relationship: (05/29/2016 21:25:Rachelle Hawkins RN) Cultural/Spritual Practice: No (05/29/2016 21:25:Rachelle Hawkins RN) Spir/Cult Dietary Needs: No (05/29/2016 21:25:Rachelle Hawkins RN) LIVING SITUATION/DISCHARGE PLAN Living Arrangements: House (05/29/2016 21:25:Rachelle Hawkins RN) Adequate Access to:: Electric; Heat; Refrigeration; Plumbing/Running water; Phone; Transportation (05/29/2016 21:25:Rachelle Hawkins RN) WIC Program: Yes (05/29/2016 21:25:Rachelle Hawkins RN) Discharge Patient Experience Coordinator Person: Andrew (05/29/2016 21:25:Rachelle Hawkins RN) Person to Help after Discharge: Andrew (05/29/2016 21:25:Rachelle Hawkins RN) Currently Using Commun Resources: No (05/29/2016 21:25:Rachelle Hawkins RN) Outside Agency/Theatre Arts Professor: N/A (05/29/2016 21:25:Rachelle Hawkins RN) Car Seat for Discharge: Yes (05/29/2016 21:25:Rachelle Hawkins RN) Adoption Requested: No (05/29/2016 21:25:Rachelle Hawkins RN) Pt Contact w/infant Post : N/A (05/29/2016 21:25:Rachelle Hawkins RN) LABS Blood Type: O Positive (05/29/2016 21:25:Rachelle Hawkins RN) Antibody Screen: Negative (05/29/2016 21:25:Rachelle Hawkins RN) Hemoglobin: 10.5 L (06/13/2016 01:20:QS system process) Hematocrit: 32.6 L (06/13/2016 01:20:QS system process) MCV: 73 L (06/13/2016 01:20:QS system process) Group Beta Strep: Negative (05/29/2016 21:25:Rachelle Hawkins RN) Gonorrhea: Negative (05/29/2016 21:25:Rachelle Hawkins RN) Chlamydia: Negative (05/29/2016 21:25:Rachelle Hawkins RN) RPR/VDRL: Nonreactive (05/29/2016 21:25:Rachelle Hawkins RN) Hepatitis B: Negative (05/29/2016 21:25:Rachelle Hawkins RN) Rubella: Immune (05/29/2016 21:25:Rachelle Hawkins RN) OB/PREVIOUS HISTORY Previous Procedures: Ultrasound (05/29/2016 21:25:Rachelle Hawkins RN) Current Procedures: Ultrasound (05/29/2016 21:25:Rachelle Hawkins RN) History of Previous : No (05/29/2016 21:25:Rachelle Hawkins RN) History of Gestational Diabetes: No (05/29/2016 21:25:Rachelle Hawkins RN) History of PIH: No (05/29/2016 21:25:Rachelle Hawkins RN) History of Incompetent Cervix: No (05/29/2016 21:25:Rachelle Hawkins RN) History of Placenta Previa/Abrup: No (05/29/2016 21:25:Rachelle Hawkins RN) History of Macrosomia: No (05/29/2016 21:25:Rachelle Hawkins RN) History of IUGR: No (05/29/2016 21:25:Rachelle Hawkins RN) History of Hemorrhage: No (05/29/2016 21:25:Rachelle Hawkins RN) History of Loss/Stillborn: No (05/29/2016 21:25:Rachelle Hawkins RN) History of : No (05/29/2016 21:25:Rachelle Hawkins RN) History of D (Rh) Sensitization: No (05/29/2016 21:25:Rachelle Hawkins RN) History Recurrent Loss/Stillborn: No (05/29/2016 21:25:Rachelle Hawkins RN) History Depression/PP Depression: No (05/29/2016 21:25:Rachelle Hawkins RN) History of Uterine Anomaly/NARENDRA: No (05/29/2016 21:25:Rachelle Hawkins RN) History of Infertility: No (05/29/2016 21:25:Rachelle Hawkins RN) History of ART Treatment: No (05/29/2016 21:25:Rachelle Hawkins RN) History of NARENDRA: No (05/29/2016 21:25:Rachelle Hawkins RN) Comments Obstetrical History: G1: 06/2008 girl @ 39.5 weeks, 8# 2oz G2: 04/2010 boy (induction for no medical reason per pt) @ 39 weeks, 7# 7oz G3: 09/2014 boy @ 39.5, 7# 7 oz G4: current (05/29/2016 21:25:Rachelle Hawkins RN) MEDICAL HISTORY Med Hx Diabetes: No (05/29/2016 21:25:Rachelle Hawkins RN) Med Hx Hypertension: No (05/29/2016 21:25:Rachelle Hawkins RN) Med Hx Heart Disease: No (05/29/2016 21:25:Rachelle Hawkins RN) Med Hx Autoimmune Disorder: No (05/29/2016 21:25:Rachelle Hawkins RN) Med Hx Kidney Disease/UTI: No (05/29/2016 21:25:Rachelle Hawkins RN) Med Hx Neurologic/Epilepsy: No (05/29/2016 21:25:Rachelle Hawkins RN) Med Hx Psychiatric Disorders: No (05/29/2016 21:25:Rachelle Hawkins RN) Med Hx Hepatitis/Liver Disease: No (05/29/2016 21:25:Rachelle Hawkins RN) Med Hx Varicosities/Phlebitis: No (05/29/2016 21:25:Rachelle Hawkins RN) Med Hx Thyroid Dysfunction: No (05/29/2016 21:25:Rachelle Hawkins RN) Med Hx Trauma/Violence: No (05/29/2016 21:25:Rachelle Hawkins RN) Med Hx Blood Transfusion: No (05/29/2016 21:25:Rachelle Hawkins RN) Med Hx Pulmonary (Asthma,TB): No (05/29/2016 21:25:Rachelle Hawkins RN) Med Hx Breast: No (05/29/2016 21:25:Rachelle Hawkins RN) Med Hx NUTRITION PARTNER Surgery: No (05/29/2016 21:25:Rachelle Hawkins RN) Med Hx Hospitalization/Surgery: Yes (05/29/2016 21:25:Rachelle Hawkins RN) Med Hx Anesthetic Complications: No (05/29/2016 21:25:Rachelle Hawkins RN) Med Hx Abnormal Pap Smear: No (05/29/2016 21:25:Rachelle Hawkins RN) Other Medical Diseases: No (05/29/2016 21:25:Rachelle Hawkins RN) Med Hx Significant Family Hx: No (05/29/2016 21:25:Rachelle Hawkins RN) Details of Med/Surg Hx: hospitalized for of babies (05/29/2016 21:25:Rachelle Hawkins RN) INFECTIOUS HISTORY Inf Hx Gonorrhea: No (05/29/2016 21:25:Rachelle Hawkins RN) Inf Hx Chlamydia: No (05/29/2016 21:25:Rachelle Hawkins RN) Inf Hx Syphilis: No (05/29/2016 21:25:Rachelle Hawkins RN) Inf Hx HIV/AIDS: No (05/29/2016 21:25:Rachelle Hawkins RN) Inf Hx Human Papilloma Virus: No (05/29/2016 21:25:Rachelle Hawkins RN) Inf Hx Pt/Partner Genital Herpes: No (05/29/2016 21:25:Rachelle Hawkins RN) Inf Hx Tuberculosis/Exposure: No (05/29/2016 21:25:Rachelle Hawkins RN) Inf Hx Hepatitis B,C: No (05/29/2016 21:25:Rachelle Hawkins RN) Inf Hx Rash or Viral Illness: No (05/29/2016 21:25:Rachelle Hawkins RN) GENETIC HISTORY Gen Hx Age >=35 at JAIME: No (05/29/2016 21:25:Rachelle Hawkins RN) Gen Hx Thalassemia: No (05/29/2016 21:25:Rachelle Hawkins RN) Gen Hx Congenital Heart Defect: No (05/29/2016 21:25:Rachelle Hawkins RN) Gen Hx Neural Tube Defect: No (05/29/2016 21:25:Rachelle Hawkins RN) Gen Hx Down's Syndrome: No (05/29/2016 21:25:Rachelle Hawkins RN) Gen Hx Juan Antonio-Sachs: No (05/29/2016 21:25:Rachelle Hawkins RN) Gen Hx Joycelyn: No (05/29/2016 21:25:Rachelle Hawkins RN) Gen Hx Familial Dysautonomia: No (05/29/2016 21:25:Rachelle Hawkins RN) Gen Hx Sickle Cell Disease/Trait: No (05/29/2016 21:25:Rachelle Hawkins RN) Gen Hx Hemophilia/Blood Disorder: No (05/29/2016 21:25:Rachelle Hawkins RN) Gen Hx Muscular Dystrophy: No (05/29/2016 21:25:Rachelle Hawkins RN) Gen Hx Cystic Fibrosis: No (05/29/2016 21:25:Rachelle Hawkins RN) Gen Hx [place] Chorea: No (05/29/2016 21:25:Rachelle Hawkins RN) Gen Hx Mental Retardation/Autism: No (05/29/2016 21:25:Rachelle Hawkins RN) Gen Hx Tested for Fragile X: No (05/29/2016 21:25:Rachelle Hawkins RN) Gen Hx Other Inher/Chromosomal: No (05/29/2016 21:25:Rachelle Hawkins RN) Gen Hx Maternal Metabolic DO: No (05/29/2016 21:25:Rachelle Hawkins RN) Gen Hx Pt Father or FOB Defect: No (05/29/2016 21:25:Rachelle Hawkins RN) Gen Hx Other Genetic History: No (05/29/2016 21:25:Rachelle Hawkins RN) Gen Hx Drugs/Meds since LMP: Yes (05/29/2016 21:25:Rachelle Hawkins RN) Gen Hx Medications: PNV (05/29/2016 21:25:Rachelle Hawkins RN)
--- NOTE | 2016-06-13 18:01 | L&D Current Admission ---
Current Admit Datetime Report Generated by CPN: 06/13/2016 18:00 ADMISSION INFORMATION Current Admit Date/Time: 06/13/2016 00:03 (06/13/2016 00:13:Mar Mendoza RN) Reason for Admission: Onset of Labor (06/13/2016 00:13:Mar Mendoza RN) Chief Complaint: Contractions (06/13/2016 00:05:Mar Mendoza RN) Medications During : Vitamin (06/13/2016 00:13:Mar Mendoza RN) Meds During -Oth: vistaril prior to d/c 1 hr ago (06/13/2016 00:13:Mar Mendoza RN) EGA per Dates: 40.1 (06/13/2016 00:13:QS system process) Method of Arrival: Wheelchair (06/13/2016 00:13:Mar Mendoza RN) Admitted From: Home (06/13/2016 00:13:Mar Mendoza RN) Reason for Induction: Not Applicable (06/13/2016 00:13:Mar Mendoza RN) Records Available: Yes (06/13/2016 00:13:Mar Mendoza RN) General Admission Information: Reviewed (06/13/2016 00:13:Mar Mendoza RN) General Admission Reviewed By: Enoc Mendoza RN (06/13/2016 00:13:Mar Mendoza RN) BELONGINGS/ADVANCED DIRECTIVES Valuables/Personal Effects: Purse/Wallet; Cell Phone (06/13/2016 00:13:Mar Mendoza RN) Other Belongings: see paper belongings form (06/13/2016 00:13:Mar Mendoza RN) Disposition of Belongings: Kept with Patient (06/13/2016 00:13:Mar Mendoza RN) Advance Direct for Healthcare: No, and Wants No Information (06/13/2016 00:13:Mar Mendoza RN) Durable Power of Assembler Steam [employer] Turbine: No (06/13/2016 00:13:Mar Mendoza RN) Living Will: No (06/13/2016 00:13:Mar Mendoza RN) Organ Donor: No (06/13/2016 00:13:Mar Mendoza RN) Pt Rights Information Given: Yes (06/13/2016 00:13:Mar Mendoza RN) Pt Understands Pt Rights: Yes (06/13/2016 00:13:Mar Mendoza RN) LEARNING ASSESSMENT Knowledge Level: Understands L_D Process; Understands Care Activities; Had Pre-Hospital Education; Understands Diagnosis (06/13/2016 00:13:Mar Mendoza RN) Barriers to Learning: None (06/13/2016 00:13:Mar Mendoza RN) Learning Readiness: Motivated (06/13/2016 00:13:Mar Mendoza RN) Learns Best By: 1 to 1 Instruction (06/13/2016 00:13:Mar Mendoza RN) Learning Needs: Labor and Delivery Process; Pain Management; Symptoms to Report; Treatment Plan; Medication; Diagnosis; Nutrition; Equipment; Infant Care; Community Resources (06/13/2016 00:13:Mar Mendoza RN) DOMESTIC VIOLANCE SCREENING Dom Viol Threatened/Hurt: No (06/13/2016 00:13:Mar Mendoza RN) Hx of Abuse/Neglect past 2yrs: No (06/13/2016 00:13:Mar Mendoza RN) Feel Unsafe Going Home: No (06/13/2016 00:13:Mar Mendoza RN) Addt'l Observ Indicating Abuse: No (06/13/2016 00:13:Mar Mendoza RN) Reason Unable to Complete Screen: N/A, Screen Completed (06/13/2016 00:13:Mar Mendoza RN) Considered Personal Harm/Suicide: No (06/13/2016 00:13:Mar Mendoza RN) NUTRITIONAL/FUNCTIONAL SCREENING Problem with Appetite >5 Days: No (06/13/2016 00:13:Mar Mendoza RN) Chew/Swallow Difficulties: No (06/13/2016 00:13:Mar Mendoza RN) Inappropriate Wt Gain/Loss: No (06/13/2016 00:13:Mar Mendoza RN) Presence Skin Breakdown/Ulcer: No (06/13/2016 00:13:Mar Mendoza RN) Special Diet: No (06/13/2016 00:13:Mar Mendoza RN) Pt Requests Diesel Stationary Engineer Visit: No (06/13/2016 00:13:Mar Mendoza RN) Hx of Any of the Following?: N/A (06/13/2016 00:13:Mar Mendoza RN) New Diagnosis of: N/A (06/13/2016 00:13:Mar Mendoza RN) Requires Assist w/Ambulation: No (06/13/2016 00:13:Mar Mendoza RN) Uses Assist Device to Ambulate: No (06/13/2016 00:13:Mar Mendoza RN) Pt Requires Help w/ADL's: No (06/13/2016 00:13:Mar Mendoza RN)
[2016-06-14] MEDS: ACETAMINOPHEN WITH CODEINE #3 TABLET PO PRN (03:33)
[2016-06-14] MEDS: IBUPROFEN 800 MG TABLET PO SCH (05:33)
--- NOTE | 2016-06-14 06:01 | L&D General Admission ---
General Admit Datetime Report Generated by CPN: 06/14/2016 06:00 INFORMATION Patient Age: 25 (05/13/2016 09:17:QS system process) EDC: 06/12/2016 00:00 (05/29/2016 21:25:Rachelle Hawkins RN) : 4 (05/29/2016 21:25:Rachelle Hawkins RN) Para: 3 (06/12/2016 22:55:Tanja Cain RN) Term: 3 (05/29/2016 21:25:Rachelle Hawkins RN) : 0 (05/29/2016 21:25:Rachelle Hawkins RN) Spontaneous Abortions: 0 (05/29/2016 21:25:Rachelle Hawkins RN) Induced Abortions: 0 (05/29/2016 21:25:Rachelle Hawkins RN) Livin (05/29/2016 21:25:Rachelle Hawkins RN) Cesareans: 0 (05/29/2016 21:25:Rachelle Hawkins RN) VBACs: 0 (05/29/2016 21:25:Rachelle Hawkins RN) Ectopic: 0 (05/29/2016 21:25:Rachelle Hawkins RN) Multiple Births: 0 (05/29/2016 21:25:Rachelle Hawkins RN) Baby, Number in Womb: 1 (06/12/2016 22:55:Tanja Cain RN) CARE Primary Data Operations Manager: [facility] (05/29/2016 21:25:Rachelle Hawkins RN) Adequate Care: Yes (05/29/2016 21:25:Rachelle Hawkins RN) Height (in): 64 (06/13/2016 09:55:QS system process) ALLERGIES Medication Allergy: No (05/29/2016 21:25:Rachelle Hawkins RN) Medication Allergies: No Known Allergies (06/12/2016) (06/12/2016 21:33:QS system process) Latex Allergy: No Latex Allergies (05/29/2016 21:25:Rachelle Hawkins RN) Food Allergies: none (05/29/2016 21:25:Rachelle Hawkins RN) Environmental Allergies: none (05/29/2016 21:25:Rachelle Ring, RN) COMMUNICATION Primary Language: Tanzanian (05/29/2016 21:25:Rachelle Hawkins RN) Medical Tx Preferred Language: Tanzanian (05/29/2016 21:25:Rachelle Hawkins RN) Communication Barrier(s): None (05/29/2016 21:25:Rachelle Hawkins RN) DEMOGRAPHICS Address: [address] [place] [id number] (05/13/2016 09:17:QS system process) Zipcode: [id number] (05/13/2016 09:17:QS system process) Home (05/13/2016 09:17:QS system process) SSN: [id number] (05/13/2016 09:17:QS system process) Next of Kin Name: ANDREW REDD (05/13/2016 09:17:QS system process) Next of Kin (05/13/2016 09:17:QS system process) Next of Kin Relationship: SPO (05/13/2016 09:17:QS system process) Date of : 1990 (05/13/2016 09:17:QS system process) Marital Status: (05/13/2016 09:17:QS system process) Sex: Female (05/13/2016 09:17:QS system process) Race: (05/13/2016 09:17:QS system process) Ethnicity: Non- or (05/13/2016 09:17:QS system process) Confucianism: Confucianist (05/13/2016 09:17:QS system process) DRUG AND ALCOHOL USE Alcohol: No (05/29/2016 21:25:Rachelle Ring, RN) Cigarettes: Never Smoker. [id number] (05/29/2016 21:25:Rachelle Ring, RN) Marijuana: No (05/29/2016 21:25:Rachelle Ring, RN) Cocaine: No (05/29/2016 21:25:Rachelle Ring, RN) Other Illicit Drugs: No (05/29/2016 21:25:Rachelle Ring, RN) VACCINE HISTORY Influenza Vaccine: No (05/29/2016 21:25:Rachelle Ring, RN) Pneumococcal Vaccine: No (05/29/2016 21:25:Rachelle Hawkins RN) Tetanus Vaccine: Yes (05/29/2016 21:25:Rachelle Hawkins RN) Tdap Vaccine: Yes (05/29/2016 21:25:Rachelle Hawkins RN) Tdap Date: 2014 (05/29/2016 21:25:Rachelle Hawkins RN) Hepatitis B Vaccine: Yes (05/29/2016 21:25:Rachelle Hawkins RN) Crocheter: Page Miller (05/29/2016 21:25:Rachelle Hawkins RN) Feeding Preference: Breast (05/29/2016 21:25:Rachelle Hawkins RN) Benefit of Breast Feed Discussed: Yes (05/29/2016 21:25:Rachelle Hawkins RN) Circumcision: No (05/29/2016 21:25:Rachelle Hawkins RN) Classes Attended: No (05/29/2016 21:25:Rachelle Hawkins RN) Tubal Ligation: Yes (05/29/2016 21:25:Rachelle Hawkins RN) Tubal Authorization Signed: No (05/29/2016 21:25:Rachelle Hawkins RN) Consent: N/A (05/29/2016 21:25:Rachelle Hawkins RN) Consent Signed: N/A (05/29/2016 21:25:Rachelle Hawkins RN) Pain Management Plans: Natural (05/29/2016 21:25:Rachelle Hawkins RN) Plans for Labor and Delivery: Other, Specify (05/29/2016 21:25:Rachelle Hawkins RN) Other Labor and Delivery Plans: Delayed cord clamping (05/29/2016 21:25:Rachelle Hawkins RN) Support Person: Andrew (05/29/2016 21:25:Rachelle Hawkins RN) Support Person Relationship: (05/29/2016 21:25:Rachelle Hawkins RN) Cultural/Spritual Practice: No (05/29/2016 21:25:Rachelle Hawkins RN) Spir/Cult Dietary Needs: No (05/29/2016 21:25:Rachelle Hawkins RN) LIVING SITUATION/DISCHARGE PLAN Living Arrangements: House (05/29/2016 21:25:Rachelle Hawkins RN) Adequate Access to:: Electric; Heat; Refrigeration; Plumbing/Running water; Phone; Transportation (05/29/2016 21:25:Rachelle Hawkins RN) WIC Program: Yes (05/29/2016 21:25:Rachelle Hawkins RN) Discharge Spindle Repairer Person: Andrew (05/29/2016 21:25:Rachelle Hawkins RN) Person to Help after Discharge: Andrew (05/29/2016 21:25:Rachelle Hawkins RN) Currently Using Commun Resources: No (05/29/2016 21:25:Rachelle Hawkins RN) Outside Agency/Job Change Crew Member: N/A (05/29/2016 21:25:Rachelle Hawkins RN) Car Seat for Discharge: Yes (05/29/2016 21:25:Rachelle Hawkins RN) Adoption Requested: No (05/29/2016 21:25:Rachelle Hawkins RN) Pt Contact w/infant Post : N/A (05/29/2016 21:25:Rachelle Hawkins RN) LABS Blood Type: O Positive (05/29/2016 21:25:Rachelle Hawkins RN) Antibody Screen: Negative (05/29/2016 21:25:Rachelle Hawkins RN) Hemoglobin: 10.5 L (06/13/2016 01:20:QS system process) Hematocrit: 32.6 L (06/13/2016 01:20:QS system process) MCV: 73 L (06/13/2016 01:20:QS system process) Group Beta Strep: Negative (05/29/2016 21:25:Rachelle Hawkins RN) Gonorrhea: Negative (05/29/2016 21:25:Rachelle Hawkins RN) Chlamydia: Negative (05/29/2016 21:25:Rachelle Hawkins RN) RPR/VDRL: Nonreactive (05/29/2016 21:25:Rachelle Hawkins RN) Hepatitis B: Negative (05/29/2016 21:25:Rachelle Hawkins RN) Rubella: Immune (05/29/2016 21:25:Rachelle Hawkins RN) OB/PREVIOUS HISTORY Previous Procedures: Ultrasound (05/29/2016 21:25:Rachelle Hawkins RN) Current Procedures: Ultrasound (05/29/2016 21:25:Rachelle Hawkins RN) History of Previous : No (05/29/2016 21:25:Rachelle Hawkins RN) History of Gestational Diabetes: No (05/29/2016 21:25:Rachelle Hawkins RN) History of PIH: No (05/29/2016 21:25:Rachelle Hawkins RN) History of Incompetent Cervix: No (05/29/2016 21:25:Rachelle Hawkins RN) History of Placenta Previa/Abrup: No (05/29/2016 21:25:Rachelle Hawkins RN) History of Macrosomia: No (05/29/2016 21:25:Rachelle Hawkins RN) History of IUGR: No (05/29/2016 21:25:Rachelle Hawkins RN) History of Hemorrhage: No (05/29/2016 21:25:Rachelle Hawkins RN) History of Loss/Stillborn: No (05/29/2016 21:25:Rachelle Hawkins RN) History of : No (05/29/2016 21:25:Rachelle Hawkins RN) History of D (Rh) Sensitization: No (05/29/2016 21:25:Rachelle Hawkins RN) History Recurrent Loss/Stillborn: No (05/29/2016 21:25:Rachelle Hawkins RN) History Depression/PP Depression: No (05/29/2016 21:25:Rachelle Hawkins RN) History of Uterine Anomaly/NARENDRA: No (05/29/2016 21:25:Rachelle Hawkins RN) History of Infertility: No (05/29/2016 21:25:Rachelle Hawkins RN) History of ART Treatment: No (05/29/2016 21:25:Rachelle Hawkins RN) History of NARENDRA: No (05/29/2016 21:25:Rachelle Hawkins RN) Comments Obstetrical History: G1: 06/2008 girl @ 39.5 weeks, 8# 2oz G2: 04/2010 boy (induction for no medical reason per pt) @ 39 weeks, 7# 7oz G3: 09/2014 boy @ 39.5, 7# 7 oz G4: current (05/29/2016 21:25:Rachelle Hawkins RN) MEDICAL HISTORY Med Hx Diabetes: No (05/29/2016 21:25:Rachelle Hawkins RN) Med Hx Hypertension: No (05/29/2016 21:25:Rachelle Hawkins RN) Med Hx Heart Disease: No (05/29/2016 21:25:Rachelle Hawkins RN) Med Hx Autoimmune Disorder: No (05/29/2016 21:25:Rachelle Hawkins RN) Med Hx Kidney Disease/UTI: No (05/29/2016 21:25:Rachelle Hawkins RN) Med Hx Neurologic/Epilepsy: No (05/29/2016 21:25:Rachelle Hawkins RN) Med Hx Psychiatric Disorders: No (05/29/2016 21:25:Rachelle Hawkins RN) Med Hx Hepatitis/Liver Disease: No (05/29/2016 21:25:Rachelle Hawkins RN) Med Hx Varicosities/Phlebitis: No (05/29/2016 21:25:Rachelle Hawkins RN) Med Hx Thyroid Dysfunction: No (05/29/2016 21:25:Rachelle Hawkins RN) Med Hx Trauma/Violence: No (05/29/2016 21:25:Rachelle Hawkins RN) Med Hx Blood Transfusion: No (05/29/2016 21:25:Rachelle Hawkins RN) Med Hx Pulmonary (Asthma,TB): No (05/29/2016 21:25:Rachelle Hawkins RN) Med Hx Breast: No (05/29/2016 21:25:Rachelle Hawkins RN) Med Hx WARE FINISHER Surgery: No (05/29/2016 21:25:Rachelle Hawkins RN) Med Hx Hospitalization/Surgery: Yes (05/29/2016 21:25:Rachelle Hawkins RN) Med Hx Anesthetic Complications: No (05/29/2016 21:25:Rachelle Hawkins RN) Med Hx Abnormal Pap Smear: No (05/29/2016 21:25:Rachelle Hawkins RN) Other Medical Diseases: No (05/29/2016 21:25:Rachelle Hawkins RN) Med Hx Significant Family Hx: No (05/29/2016 21:25:Rachelle Hawkins RN) Details of Med/Surg Hx: hospitalized for of babies (05/29/2016 21:25:Rachelle Hawkins RN) INFECTIOUS HISTORY Inf Hx Gonorrhea: No (05/29/2016 21:25:Rachelle Hawkins RN) Inf Hx Chlamydia: No (05/29/2016 21:25:Rachelle Hawkins RN) Inf Hx Syphilis: No (05/29/2016 21:25:Rachelle Hawkins RN) Inf Hx HIV/AIDS: No (05/29/2016 21:25:Rachelle Hawkins RN) Inf Hx Human Papilloma Virus: No (05/29/2016 21:25:Rachelle Hawkins RN) Inf Hx Pt/Partner Genital Herpes: No (05/29/2016 21:25:Rachelle Hawkins RN) Inf Hx Tuberculosis/Exposure: No (05/29/2016 21:25:Rachelle Hawkins RN) Inf Hx Hepatitis B,C: No (05/29/2016 21:25:Rachelle Hawkins RN) Inf Hx Rash or Viral Illness: No (05/29/2016 21:25:Rachelle Hawkins RN) GENETIC HISTORY Gen Hx Age >=35 at JAIME: No (05/29/2016 21:25:Rachelle Hawkins RN) Gen Hx Thalassemia: No (05/29/2016 21:25:Rachelle Hawkins RN) Gen Hx Congenital Heart Defect: No (05/29/2016 21:25:Rachelle Hawkins RN) Gen Hx Neural Tube Defect: No (05/29/2016 21:25:Rachelle Hawkins RN) Gen Hx Down's Syndrome: No (05/29/2016 21:25:Rachelle Hawkins RN) Gen Hx Juan Antonio-Sachs: No (05/29/2016 21:25:Rachelle Hawkins RN) Gen Hx Joycelyn: No (05/29/2016 21:25:Rachelle Hawkins RN) Gen Hx Familial Dysautonomia: No (05/29/2016 21:25:Rachelle Hawkins RN) Gen Hx Sickle Cell Disease/Trait: No (05/29/2016 21:25:Rachelle Hawkins RN) Gen Hx Hemophilia/Blood Disorder: No (05/29/2016 21:25:Rachelle Hawkins RN) Gen Hx Muscular Dystrophy: No (05/29/2016 21:25:Rachelle Hawkins RN) Gen Hx Cystic Fibrosis: No (05/29/2016 21:25:Rachelle Hawkins RN) Gen Hx Huntingtons Chorea: No (05/29/2016 21:25:Rachelle Hawkins RN) Gen Hx Mental Retardation/Autism: No (05/29/2016 21:25:Rachelle Hawkins RN) Gen Hx Tested for Fragile X: No (05/29/2016 21:25:Rachelle Hawkins RN) Gen Hx Other Inher/Chromosomal: No (05/29/2016 21:25:Rachelle Hawkins RN) Gen Hx Maternal Metabolic DO: No (05/29/2016 21:25:Rachelle Hawkins RN) Gen Hx Pt Father or FOB Defect: No (05/29/2016 21:25:Rachelle Hawkins RN) Gen Hx Other Genetic History: No (05/29/2016 21:25:Rachelle Hawkins RN) Gen Hx Drugs/Meds since LMP: Yes (05/29/2016 21:25:Rachelle Hawkins RN) Gen Hx Medications: PNV (05/29/2016 21:25:Rachelle Hawkins RN)
--- NOTE | 2016-06-14 06:15 | L&D Care Plan ---
LD CARE PLANS Datetime Report Generated by CPN: 06/14/2016 06:15 Datetime: 06/13/2016 00:00 Pain State: Actual (Rachelle Hawkins RN) Related To: Labor and Delivery Process; Treatment and Procedures; Post (Rachelle Hawkins, RN) Goal(s): Patients Pain will be Assessed and Managed; Patient will Verbalize Adequate Relief of Pain or the Ability to [place] with Current Pain (Rachelle Hawkins RN) Interventions: Assess Pain Severity on Scale of 0 (None) to 5 (Severe); Assess Type, Location and Intensity of Pain Each Time Client Reports Discomfort and Notify Provider if Unusal Pain Develops; Encourage Proper Breathing and Relaxation Techniques; Offer Alternatives Such as Repositioning, Calm Environment, Massages, Diversional Activities, Ice Pack, Splinting, and Ambulation; Administer Analgesics as Ordered; Assist with Epidural Placement as Appropriate; Evaluate Therapeutic Effectiveness of Medication and Treatments (Rachelle Hawkins RN) Outcome: Patient will Report Absence or Relief of Pain Consistent with Established Pain Goal (Rachelle Hawkins RN) Status: Ongoing (Rachelle Hawkins RN) Outcome: Patient will have a Decrease in Signs and Symptoms of Discomfort (Rachelle Hawkins RN) Status: Ongoing (Rachelle Hawkins RN) Outcome: Pain will be Controlled During Procedures (Rachelle Hawkins RN) Status: Ongoing (Rachelle Hawkins RN) Anxiety State: Risk For (Rachelle Hawkins RN) Related To: Labor and Delivery Process; Significant Life Event (Rachelle Hawkins RN) Goal(s): Patient will have Decreased Anxiety and be able to Function at Acceptable Levels (Rachelle Hawkins RN) Interventions: Assess Verbal and Nonverbal Behavioral Indicators of Anxiety; Assist Patient to Identify and Verbalize Symptoms of Anxiety; Identify and Demonstrate Techniques to Control Anxiety; Assist Patient with Coping Mechanisms to Manage Anxiety; Provide Theraputic Touch for the Patient; Explain to Patient, Using a Calm Reassuring Approach and Nonmedical Terms, All Activities, Procedures, and Concerns; Instruct Patient and Family about Post Discharge Care, Limitations, Symptoms to Report and Resources Available (Rachelle Hawkins RN) Outcome: Patient will Identify, Verbalize and Demonstrate Techniques to Control Anxiety (Rachelle Hawkins RN) Status: Ongoing (Rachelle Hawkins RN) Outcome: Patient's Posture, Facial Expressions, Gestures and Activity Level will Reflect Decreased Anxiety (Rachelle Hawkins RN) Status: Ongoing (Rachelle Hawkins RN) Outcome: Patient will Verbalize a Sense of Control and/or Acceptance of the Situation (Rachelle Hawkins RN) Status: Ongoing (Rachelle Hawkins RN) Outcome: Patient will Identify and Utilize Support Person (Rachelle Hawkins RN) Status: Ongoing (Rachelle Hawkins RN) Knowledge Deficit State: Risk For (Rachelle Hawkins RN) Related To: Labor and Delivery Process; Treatment and Procedures (Rachelle Hawkins RN) Goal(s): Patient will Accurately Verbalize Understanding of Plan of Care and Treatment; Patient and Family will Accurately Verbalize Understanding of the Disease Process (Rachelle Hawkins RN) Interventions: Assess Motivation and Willingness of Patient/Family to Learn; Assess Preferred Learning Mode: One to One Instruction, Reading, Videos, Group Discussion or Demonstration; Assess Barriers to Learning: Pain, Emotional State, Language Barrier, Cognitive Impairment, Visual or Hearing Deficits; Assess Patient and Family Knowledge of Disease Process, Medications and Treatment; Discuss Therapy and/or Treatment Options, Describe Rationale Behind Management, Therapy and Treatment Recommendations; Instruct Patient and Family on Signs and Symptoms to Report; Instruct Patient and Family on Medication Effects and Side Effects; Provide Appropriate and Timely Education Using Multiple Techniques; Provide Patient and Family with Support Group Information and Resources; Give Clear and Thorough Explanations and Demonstrations (Rachelle Hawkins RN) Outcome: Patient and Family will Verbalize Understanding of Condition, Treatment and Signs and Symptoms to Report (Rachelle Hawkins RN) Status: Ongoing (Rachelle Hawkins RN) Outcome: Patient will Identify Perceived Learning Needs and Express Motivation to Learn (Rachelle Hawkins RN) Status: Ongoing (Rachelle Hawkins RN) Outcome: Patient will Verbalize Understanding of Desired Content, and/or Performs Desired Skill Prior to Discharge (Rachelle Hawkins RN) Status: Ongoing (Rachelle Hawkins, RN) Infection State: Risk For (Rachelle Hawkins RN) Related To: Surgical Procedures; Prolonged Labor or Induction; Invasive Procedures (Rachelle Hawkins RN) Goal(s): The Patient will be Free of Infection, Vital Signs Stable and Lab Work within Normal Parameters (Rachelle Hawkins, RN) Interventions: Instruct and Reinforce Proper Handwashing, Hygiene, and Care Techniques to Patient and Family; Monitor Vital Signs; Monitor Patient for the Following Signs of Infection: Fever, Abdominal Tenderness, Unusual Discharge; Monitor Aminiotic Fluid, Urine and Lochia for Color and Odor; Observe Wounds, Incisions and Invasive Line Sites for Redness, Drainage and Edema; Assess IV Sites per Hospital Policy; Monitor Lab and Test Results and Notify Provider of Abnormal Findings; Assess Nutritional Status and Promote Good Nutrition (Rachelle Hawkins, RN) Outcome: Patient will Remain Free of Infection (Rachelle Hawkins, RN) Status: Ongoing (Rachelle Hawkins, RN) Outcome: Infection will be Recognized Early to Allow for Prompt Treatment (Rachelle Hawkins RN) Status: Ongoing (Rachelle Hawkins, RN) Outcome: Patient will have Vital Signs Within Expected Range (Rachelle Hawkins, RN) Status: Ongoing (Rachelle Hawkins, RN) Fluid Volume State: Not Applicable (Rachelle Ring, RN) Injury State: Risk For (Rachelle Ring, RN) Related To: Labor and Delivery Process (Rachelle Ring, RN) Goal(s): Patient will Remain Free from Injury (Rachelle Ring, RN) Interventions: Monitoring as per Hospital Protocol; Assess Neurological Status; Perform Risk Assessment of Patients with Induction and ; Perform Fall Risk Assessment and Prevention per Hospital Protocol; Perform DVT Risk Assessment and Prophylaxis per Hospital Protocol; Ensure that Oxygen, Suction, and Resuscitation Medications and Equipment are Readily Available; Confirm Patient ID Prior to Procedure(s) and Medication Administration per Hospital Policy (Rachelle Ring, RN) Outcome: Successful Fall Risk Prevention (Rachelle Ring, RN) Status: Ongoing (Rachelle Ring, RN) Outcome: Patient will Deliver Infant without Adverse [place]ela (Rachelle Ring, RN) Status: Ongoing (Rachelle Ring, RN) Outcome: Patient's Neurological Status will Remain Stable (Rachelle Ring, RN) Status: Ongoing (Rachelle Ring, RN) Impaired Skin Integrity State: Risk For (Rachelle Hawkins, RN) Related To: Vaginal Delivery (Rachelle Hawkins, RN) Goal(s): Patient will Maintain Optimal Skin Integrity, Free of Breakdown, Injury or Infection (aRchelle Ring, RN) Interventions: Complete Screening for Pressure Ulcer Risk and Initiate Protocol per Hospital Policy; Monitor Site of Skin Impairment for Color Changes, Redness, Swelling, Warmth, Pain or Other Signs of Infection; Encourage and Assist with Position Changes; Monitor Patient's Mobility Status; Provide Adequate Nutrition and Fluids; Teach Patient Appropriate Hygienic Care; Teach Patient/Family Skin Care Management (Rachelle Hawkins, RN) Outcome: Patient will not have Evidence of Injury Such as Skin Breakdown, Scrapes, Cuts, or Bruising (Rachelle Ring, RN) Status: Ongoing (Rachelle Ring, RN) Outcome: Patient will Report Any Altered Sensation or Pain at Site of Skin Impairment (Rachelle Ring, RN) Status: Ongoing (Rachelle Ring, RN) Outcome: Patients Incisions and Wounds will be without Signs or Symptoms of Infection (Rachelle Ring, RN) Status: Ongoing (Rachelle Ring, RN) Outcome: Patient will Demonstrate Understanding of Plan to Heal Skin and Prevent Reinjury and Verbalize Risk Factors (Rachelle Ring, RN) Status: Ongoing (Rachelle Ring, RN) Parenting Impaired State: Not Applicable (Rachelle Hawkins, RN) Nutrition State: Risk For (Rachelle Hawkins RN) Related To: (Rachelle Hawkins RN) Interventions: Nutritional Screening and Assessment per Hospital Policy; Allow Patient to Plan and Order Diet when Possible; Monitor Laboratory Values That Indicate Nutritional Well-being; Consult Rehabilitation Services Aide for Nutritional Support Regarding Requirements; Document Actual Weight Initially and Weekly (Do Not Estimate); Encourage Patient Participation in Maintaining a Food Log as Indicated; Educate Patient on the Importance of Maintaining an Adequate Caloric Intake (Rachelle Hawkins, RN) Outcome: Patient will Receive Adequate Calories and Fluid Volume to Meet Metabolic Needs (Rachelle Hawkins RN) Status: Ongoing (Rachelle Hawkins RN) Outcome: Patient will Select Foods or Meals that Support Adequate Nutrition (Rachelle Hawkins, RN) Status: Ongoing (Rachelle Hawkins, RN) Grieving State: Not Applicable (Rachelle Hawkins, RN) Additional Care Plan State: Not Applicable (Rachelle Hawkins, RN)
[2016-06-14 07:52] VITALS: BP 104/62
[2016-06-14 08:18] LABS: HEMATOCRIT 29.8 % (36.0-47.0); HEMOGLOBIN 9.4 g/dL (12.0-15.5); HGB HCT DIFFERENCE -1.6; MEAN CORPUSCULAR HGB CONC 31.5 g/dL (32.0-36.0); MEAN CORPUSCULAR VOLUME 73 fl (80-97); RED BLOOD COUNT 4.08 10^6/uL (3.72-5.28); RED CELL DISTRIBUTION WIDTH 15.2 % (11.5-14.0); WHITE BLOOD COUNT 15.3 10^3/uL (4.0-10.5)
[2016-06-14] MEDS: FERROUS SULFATE 325 MG TABLET PO SCH (09:16)
[2016-06-14] MEDS: DOCUSATE SODIUM 100 MG CAPSULE PO SCH (09:16)
[2016-06-14] MEDS: SENNOSIDES/DOCUSATE 8.6-50 MG 1 EACH TABLET PO SCH (09:17)
[2016-06-14] MEDS: PRENATAL VITAMIN W-O CA NO5/FE FUMARATE/FA CAPSULE PO SCH (09:17)
[2016-06-14] MEDS: FAMOTIDINE 20 MG TABLET PO SCH (09:17)
--- NOTE | 2016-06-14 09:56 | PDOC PROGRESS REPORT ---
Subjective-OB Subjective: Post Delivery Day: 26 year old. Denies any needs at this time. Ready to go home. Physical Exam (OB) Vital Signs: Temp Pulse Resp BP Pulse Ox 97.8 F 72 16 104/62 99 06/14/16 09:46 06/14/16 09:46 06/14/16 09:46 06/14/16 07:30 06/14/16 09:46 Intake & Output 06/13/16 06/14/16 06/15/16 06:59 06:59 06:59 Intake Total 1080 240 Balance 1080 240 Weight 80.385 kg Baby 1 Male 3.572 kg - Lochia Lochia Amount: Scant < 10 ml Lochia Color: Rubra/Red - Abdomen Description: Soft, Round Hernia Present: No Bowel Sounds: Normoactive Flatus Presence: Present Stool: No Fundal Description: Firm, Midline Fundal Height: u/u - u/2 Objective-Diagnostic Laboratory: 06/14/16 07:23 06/14/16 07:23 WBC 15.3 H RBC 4.08 Hgb 9.4 L Hct 29.8 L MCV 73 L MCH 23.0 L MCHC 31.5 L RDW 15.2 H Plt Count 302 Assessment and Plan(PN) - Assessment and Plan (1) Is this a current diagnosis for this admission?: Yes (2) (spontaneous vaginal delivery) Is this a current diagnosis for this admission?: Yes
--- NOTE | 2016-06-14 10:01 | PDOC DISCHARGE SUMMARY ---
Final Diagnosis Discharge Date: 06/14/16 - Final Diagnosis (1) Is this a current diagnosis for this admission?: Yes (2) (spontaneous vaginal delivery) Is this a current diagnosis for this admission?: Yes Discharge Data - Discharge Medication Home Medications: Pnv with Ca,No.72/Iron/FA [Pnv Plus Multivit Tab] 1 each PO DAILY 06/12 Ferrous Sulfate [Feosol 325 mg Tablet] 325 mg PO BID #60 tablet 06/14/16 Ibuprofen [Motrin 800 mg Tablet] 800 mg PO Q8 #20 tablet 06/14/16 Gestational Age: 40.1 wks Reason(s) for Admission: Onset of Labor Procedures: Ultrasound Intrapartum Procedure(s): Spontaneous Vaginal Delivery - Data Baby 1 Male at 1 minute: 8 at 5 minutes: 9 Weight: 3.572 kg Home with Mother: Yes Complications: No - Diagnosis Test Laboratory: Temp Pulse Resp BP Pulse Ox 98.2 F 67 16 114/62 99 06/13/16 07:30 06/13/16 07:30 06/13/16 07:30 06/13/16 07:30 06/13/16 07:30 06/13/16 01:20 RBC 4.49 Hgb 10.5 L Hct 32.6 L - Discharge information/Instructions Discharge Activity: Activity As Tolerated, Balance Activity w/Rest, Pelvic Rest , Slowly Increase Activity, No tub bath Discharge Diet: Regular Disposition: HOME, SELF-CARE Follow up with: [facility] in: 4, Weeks
== END 2016-06-14 11:57 | disposition home or self-care (01) | DRG 775 ==
LOC: LC 23:47 → LR 06-13 00:06 → 2S 06-13 02:32
PROVIDERS: ADMIT Obstetrics & Gynecology; ATTEND Obstetrics & Gynecology
PROC: 10E0XZZ Delivery of Products of Conception, External Approach (ICD-10-PCS; principal; 2016-06-13)
PROC: 4A1HXCZ Monitoring of Products of Conception, Cardiac Rate, External Approach (ICD-10-PCS; 2016-06-13)
DX: O69.81X0 Labor and delivery complicated by cord around neck, without compression, not applicable or unspecified (principal); O62.3 Precipitate labor; Z3A.40 40 weeks gestation of pregnancy; Z37.0 Single live birth
CPT/HCPCS: 36415; 85025; 85027; 86592; 86850; 86900; 86901; 90715; J2590; J3490